=== PATIENT | male | born 1960 | race Caucasian/White ===

== ENCOUNTER 2022-11-02 08:01 | Outpatient (CLI) | payer MEDICAID, SELFPAY ==
--- NOTE | 2022-11-02 08:45 | CT_ITS ---
WS: [id number] LDCT LUNG CANCER SCREENING HISTORY: Lung cancer screening TECHNIQUE: Axial imaging performed from the apices to 1 cm below the costophrenic angles. Coronal and sagittal reformats are submitted with axial MIP series. All CT scans at [facility] use at least one of these dose optimization techniques: automated exposure control; mA and/or kV adjustment per patient size (includes targeted exams where dose is matched to clinical indication); or iterativ e reconstruction. DLP: 52.97 mGy.cm DIvol: Mean CTDIvol: 0.60 (mGy) COMPARISON: None available. Diagnostic quality: Satisfactory Lungs: Marked pulmonary emphysema. Biapical scarring with fibrosis and pleural thickening. Bilateral lower lobe irregular opacifications. Spiculated opacification at the RIGHT lung base measures 2.1 x 2 .0 cm. There is minimal broad-based opacification at the LEFT lung base. Heart: Normal size heart with no pericardial effusion.. Other findings: Mild atherosclerosis aorta. Normal size pulmonary artery. No adenopathy. No adrenal m ass. CT/CT lung screening [id number] IMPRESSION: LUNG-RADS: 4B-Suspicious FOLLOW UP: PET/CT recommended OTHER FINDINGS (S MODIFIER): None. Irregular opacifications at the lung bases may be early neoplastic changes or f ibrosis with scarring. No prior studies for comparison.
== END 2022-11-02 08:02 | disposition home or self-care (01) ==
LOC: RAD 08:04
PROVIDERS: PCP Family Medicine; Visit Provider Family Medicine
DX: Z12.2 Encounter for screening for malignant neoplasm of respiratory organs (principal); F17.219 Nicotine dependence, cigarettes, with unspecified nicotine-induced disorders
CPT/HCPCS: 71271

== ENCOUNTER 2022-11-24 05:56 | Outpatient (CLI) | payer MEDICAID, SELFPAY ==
--- NOTE | 2022-11-24 | PETR_ITS ---
PROCEDURE INFORMATION: Exam: PET/CT Skull Base to Mid-thigh Exam date and time: 11/24/2022 10:19 AM Age: 62 years old Clinical indication: Abnormal CT lung screening 11/02/2022. Bilateral lower lobe spiculated densities. LABS AND CLINICAL REPORTS: Glucose: 104 mg/dl Treatment strategy for malignancy (PET staging): Initial Staging (PI) TECHNIQUE: Imaging protocol: Following at least four-hour fasting and following the injection of radiopharmaceutical, low dose CT images were obtained. Then, PET images were obtained. Attenuation corrected images were constructed using the CT scan. Fused images of PET and CT were reviewed. The standardized uptake values (SUV) reported below are maximum values within a region of interest, expressed in gm/ml. Exam includes orbital meatal line to mid-thigh. Radiopharmaceutical: 16.09 mCi F-18 FDG (Fluorodeoxyglucose), IV. Time of imaging post radiopharmaceutical administration: 54.7 minutes. Injection site: Right antecubital vein. COMPARISON: CT lung screening [id number] 11/02/2022 8:24 AM FINDINGS: Brain: Visualized brain has normal physiologic uptake. Pharynx: No abnormal uptake. Larynx: No abnormal uptake. Lungs, pleura and trachea: Hyperinflation due to severe emphysema. The spiculated opacification at the right lung base , which was seen on the screening chest CT 3 weeks ago, has almost completely resolved. Minimal residual linear densities at its former location are consistent with atelectasis and/or scarring. It must have been infectious/inflammatory disease. SUV max at its former location is only 1.3. The minimal broad-based opacification at the left lung base , which was seen on the prior CT, is unchanged. Its SUV max is only 1.4. It is consistent with scarring. Bilateral apical pleural/parenchymal scarring is not FDG avid. SUV max at the right lung apex is only 1.4 (image 37). SUV max at the left lung apex is only 1.6 (image 36). Heart: Heart size is normal. Mediastinal space: No abnormal uptake. Liver: No abnormal uptake. Gallbladder and bile ducts: No abnormal uptake. Pancreas: No abnormal uptake. Spleen: No abnormal uptake. Adrenal glands: No abnormal uptake. Kidneys and ureters: Normal physiologic uptake. Stomach and bowel: No abnormal uptake. Reproductive: Mild prostate enlargement. Vasculature: No abnormal uptake. Lymph nodes: No abnormal uptake. No lymphadenopathy in the head, neck, chest, abdomen, pelvis or extremities. Bones/joints: No metabolically active areas. Soft tissues: No metabolically active areas. [id number] IMPRESSION: 1. No evidence of FDG avid malignant neoplasm. 2. Hyperinflation due to severe emphysema.
== END 2022-11-24 05:57 | disposition home or self-care (01) ==
LOC: RAD 11-26 05:56
PROVIDERS: PCP Family Medicine; Visit Provider Family Medicine
DX: R91.8 Other nonspecific abnormal finding of lung field (principal)
CPT/HCPCS: 78815; A9552

== ENCOUNTER → 2023-01-14 15:58 | Outpatient (BNVA) | payer MEDICAID, SELFPAY | PROVIDERS: PCP Family Medicine; Visit Provider Internal Medicine Pulmonary Disease | DX: R06.02 Shortness of breath (principal); J44.9 Chronic obstructive pulmonary disease, unspecified; R91.8 Other nonspecific abnormal finding of lung field | CPT/HCPCS: 36415; 80053; 85025 ==

== ENCOUNTER 2023-09-15 23:34 | Emergency (ER) | payer MEDICAID, SELFPAY ==
[2023-09-15 23:41] VITALS: BP 144/102; PULSE 105; RESP 22; TEMP 36.6; O2SAT 93; BMI 17.7
[2023-09-15 23:57] VITALS: BP 157/101; PULSE 101; RESP 22; O2SAT 97
--- NOTE | 2023-09-16 00:01 | ECG_ITS ---
[facility] Test Date: 2023-09-15 Pat Name: Barry Phelan Department: Room: Gender: Male Nutrition Consultant: : 1960 Requested By: Kole Rolon Order Number: [id number] Carlos Alberto MD: Faisal Alfaro M.D. Measurements Intervals [place] Rate: 100 P: 85 WV: 219 QRS: 82 QRSD: 86 T: 72 QT: 316 QTc: 408 Interpretive Statements SINUS TACHYCARDIA WITH FIRST DEGREE AV BLOCK WITH OCCASIONAL VENTRICULAR PREMATURE COMPLEXES RIGHT ATRIAL ENLARGEMENT [0.3mV P-WAVE] POSSIBLE LEFT ATRIAL ENLARGEMENT [-0.1mV P-WAVE IN V1/V2] No previous ECG available for comparison Electronically Signed On 09-17-2023 0:31:57 GOPHERMAN by Faisal Alfaro M.D. [email or web address].[employer]/store/Ov/[id number]
--- NOTE | 2023-09-16 00:02 | XRR_ITS ---
PROCEDURE INFORMATION: Exam: XR Chest Exam date and time: 09/16/2023 12:21 AM Age: 62 years old Clinical indication: Shortness of breath; Patient HX: C/O SOB TECHNIQUE: Imaging protocol: Radiologic exam of the chest. Views: 1 view. COMPARISON: CT lung screening [id number] 11/02/2022 8:24 AM FINDINGS: Lungs: Bilateral hyperinflation with emphysematous disease. No lung consolidation. Biapical pleuroparenchymal scarring is noted. Pleural spaces: Unremarkable. No pleural effusion. No pneumothorax. Heart/Mediastinum: No cardiomegaly. Bones/joints: No acute findings. XR/XR chest 1V portable [id number] IMPRESSION: Bilateral emphysema suggesting COPD. It should be noted that recent CT exam demonstrated somewhat suspicious pulmonary nodule. Further assessment should be based on chest CT recommendation and assessment. No obvious acute consolidation.
[2023-09-16 00:09] VITALS: PULSE 101; RESP 18; O2SAT 98
[2023-09-16] MEDS: ipratropium-albuterol 3 mL Neb INHALATION (00:09)
[2023-09-16 00:20] VITALS: PULSE 105; O2SAT 94
[2023-09-16] MEDS: methylPREDNISolone sod succ 125 mg/2 mL INJ IV (00:31)
[2023-09-16 00:36] VITALS: BP 148/91; PULSE 109; RESP 25; O2SAT 93
[2023-09-16 00:50] LABS: Basophils # 0.1 10^3/uL (0.0-0.1); Basophils % 0.7 %; Eosinophils # 0.1 10^3/uL (0.0-0.8); Hematocrit 44.2 % (37-53); Lymphocytes # 1.6 10^3/uL (0.8-4.8); Lymphocytes % 19.6 %; Mean Corpuscular HGB Conc 32.8 g/dL (30-55); Mean Corpuscular Hemoglobin 28.9 pg (27-33); Mean Corpuscular Volume 88.2 fl (82-101); Mean Platelet Volume 10.3 fL (7.4-10.4); Monocytes # 0.9 10^3/uL (0.2-0.9); Neutrophils # 5.48 10^3/uL (1.8-7.7); Neutrophils % 67.3 %; Nucleated Red Blood Cells % 0 %; Platelet Count 242 10^3/cmm (157-399); Red Blood Count 5.01 10^6/uL (3.85-5.65); Red Cell Distribution Width 13.1 % (12.1-15.1); White Blood Count 8.15 10^3/uL (3.29-11.43)
[2023-09-16 00:51] VITALS: BP 148/91; PULSE 106; RESP 21; O2SAT 94
[2023-09-16 01:08] LABS: Lactic Sepsis W/Reflex 0.9 mmol/L (0.5-2.2)
[2023-09-16 01:19] LABS: Alanine Aminotransferase 10 U/L (0-41); Albumin Level 4.3 g/dL (3.5-5.2); Alkaline Phosphatase 76 U/L (40-130); Anion Gap 14.7 (5-19); Aspartate Amino Transferase 18 U/L (0-40); Blood Urea Nitrogen 22 mg/dL (8-23); Calcium 8.9 mg/dL (8.5-10.5); Carbon Dioxide 27 mmol/L (22-29); Chloride 101 mmol/L (98-107); Creatinine Clr Calc Pharmacy 71.8189; Globulin 2.9 g/dL (1.3-4.6); Glomerular Filtration Rate 75.2 mL/min (90-130); Glucose 113 mg/dL (65-115); NT Pro B Type Natriuretic Pept 61 pg/mL (0-125); Osmolality Calculated 290 mOsm/kg (285-295); Potassium 4.7 mmol/L (3.5-5.1); Sodium 138 mmol/L (136-145); Total Bilirubin 0.3 mg/dL (0.15-1.2); Total Protein 7.2 g/dL (6.6-8.7)
[2023-09-16 01:38] VITALS: BP 135/89; PULSE 106; RESP 25; O2SAT 92
[2023-09-16 01:51] VITALS: BP 135/89; PULSE 106; RESP 25; TEMP 36.6; O2SAT 92
--- NOTE | 2023-09-16 02:04 | W.ED.SOB ---
HPI - SOB/Dyspnea General: Chief Complaint: Shortness of Breath/Dyspnea Stated Complaint: SOB Time Seen by Provider: 09/15/23 23:57 History of Present Illness: HPI Narrative: 62-year-old male patient with a history of COPD. He notes that he has been sick for the last several days. Increasing shortness of breath, cough and congestion. He notes clear sputum. He denies fever. No chest pain. Associated symptoms: Deny abdominal pain, chest pain, dizziness, fever(s), nausea, palpitations or vomiting Review of Systems Const: Denies: fever(s), chills or body aches Eyes: Denies: change in vision Card: Denies: chest pain or palpitations Resp: Reports: dyspnea and productive cough; Denies: non-productive cough or wheezing GI: Denies: abdominal pain, nausea, vomiting, diarrhea or hematochezia Skin/Breast: Denies: rash Neuro: Denies: headache(s), weakness in extremities, dizziness or confusion PFS ED PFSH: Medical History Tobacco use disorder, severe, in sustained remission Alcohol use disorder, severe, dependence Chronic obstructive pulmonary disease History of COVID-19 Family History Other Clotting disorder Lung disease Denies family history of Diabetes CAD (coronary artery disease) Dementia Hyperlipidemia Psychiatric illness Chronic kidney disease (CKD) Anesthesia complication Bleeding disorder Cancer Hypertension Stroke Social History Smoking and tobacco/nicotine status: former use of tobacco/nicotine Quit status (tobacco/nicotine): has quit using Year quit tobacco: 2006 Alcohol intake: former Year of sobriety/quit date alcohol: 2006 Substance/Drug Use: current Substance/Drug use frequency: daily Other substance/drug use details: 1 joint a day Lives independently: Yes Marital status: Number of children: 4 Current occupational status: disabled Special airam needs: No Agree to transfusion: Yes Physical Exam Const: COMMON NORMALS: no acute distress GENERAL APPEARANCE: cooperative; not ill appearing and not frail appearing HENMT: COMMON NORMALS: normocephalic, atraumatic and Normal external nose present HEAD & SCALP: normocephalic and atraumatic FACE & SINUS: normal facial exam and face symmetric NOSE: Normal external nose present Eye: COMMON NORMALS: Equal, round and reactive pupils present and EOMs intact bilaterally PUPIL: Yes Equal, round and reactive pupils present Neck/C-Spine: GENERAL: Yes trachea midline Chest: CHEST: Yes Symmetrical chest wall rise Resp: EFFORT & INSPECTION: Yes tachypneic AUSCULTATION: wheezes (Slight) and diminished lung sounds Cardio: COMMON NORMALS: regular rhythm RATE: tachycardic RHYTHM: regular rhythm GI: COMMON NORMALS: Normal to inspection, nondistended, normoactive bowel sounds present Extremity: COMMON NORMALS: no pedal edema Neuro: IAN COMA SCALE: document GCS findings [place] coma scale eye opening: Spontaneous [place] coma scale verbal response: Orientated Ian coma scale motor response: Obey commands Ian coma scale total score: 15 SENSORY EXAM: Yes extremities (intact) Psych: COMMON NORMALS: speech normal SPEECH: Yes normal speech Skin: COMMON NORMALS: no rashes or lesions noted GENERAL SKIN EXAM: no rashes or lesions noted Course Vital Signs: Vital signs: Vital Signs Temperature 98 F 09/16/23 01:51 Pulse Rate 106 H 09/16/23 01:51 Respiratory Rate 25 H 09/16/23 01:51 Blood Pressure 135/89 09/16/23 01:51 Pulse Oximetry 92 09/16/23 01:51 Oxygen Delivery Me thod Nasal Cannula 09/16/23 01:38 Oxygen Flow Rate 1 09/16/23 00:09 MDM - SOB/Dyspnea Medical Decision Making Patient is improved after breathing treatment and Solu-Medrol here. He feels much better he says. He was initially placed on oxygen, now off oxygen. Chest x-ray is free of infiltrate. Laboratory including BMP is otherwise not remarkable. To be placed on antibiotics and steroids. He does not have any nebulization solution other than ipratropium at home. We will give him DuoNeb treatment as this seemed to help significantly here. He knows to return for any worsening symptoms despite treatment. Lab Data 09/16/23 00:42 09/16/23 00:42 Labs/Radiology: Radiology Impressions Chest X-Ray 09/16/23 00:02 IMPRESSION: Bilateral emphysema suggesting COPD. It should be noted that recent CT exam demonstrated somewhat suspicious pulmonary nodule. Further assessment should be based on chest CT recommendation and assessment. No obvious acute consolidation. Laboratory Results WBC 8.15 10^3/uL (3.29-11.43) 09/16/23 00:42 RBC 5.01 10^6/uL (3.85-5.65) 09/16/23 00:42 Hgb 14.50 g/dL (11.27-16.99) 09/16/23 00:42 Hct 44.2 % (37-53) 09/16/23 00:42 MCV 88.2 fl (82-101) 09/16/23 00:42 MCH 28.9 pg (27-33) 09/16/23 00:42 MCHC 32.8 g/dL (30-55) 09/16/23 00:42 RDW 13.1 % (12.1-15.1) 09/16/23 00:42 Plt Count 242 10^3/cmm (157-399) 09/16/23 00:42 MPV 10.3 fL (7.4-10.4) 09/16/23 00:42 Neut % (Auto) 67.3 % 09/16/23 00:42 Lymph % (Auto) 19.6 % 09/16/23 00:42 Blanco % (Auto) 11.0 % 09/16/23 00:42 Eos % (Auto) 1.0 % 09/16/23 00:42 Baso % (Auto) 0.7 % 09/16/23 00:42 Neut # (Auto) 5.48 10^3/uL (1.8-7.7) 09/16/23 00:42 Lymph # (Auto) 1.6 10^3/uL (0.8-4.8) 09/16/23 00:42 Blanco # (Auto) 0.9 10^3/uL (0.2-0.9) 09/16/23 00:42 Eos # (Auto) 0.1 10^3/uL (0.0-0.8) 09/16/23 00:42 Baso # (Auto) 0.1 10^3/uL (0.0-0.1) 09/16/23 00:42 Nucleated RBC % (auto) 0 % 09/16/23 00:42 Nucleated RBCs # 0.0 /100WBC 09/16/23 00:42 Sodium 138 mmol/L (136-145) 09/16/23 00:42 Potassium 4.7 mmol/L (3.5-5.1) 09/16/23 00:42 Chloride 101 mmol/L (98-107) 09/16/23 00:42 Carbon Dioxide 27 mmol/L (22-29) 09/16/23 00:42 Anion Gap 14.7 (5-19) 09/16/23 00:42 BUN 22 mg/dL (8-23) 09/16/23 00:42 Creatinine 1.0 mg/dL (0.7-1.2) 09/16/23 00:42 GFR Calculation 75.2 mL/min (90-130) L 09/16/23 00:42 Glucose 113 mg/dL (65-115) 09/16/23 00:42 Calculated Osmolality 290 mOsm/kg (285-295) 09/16/23 00:42 Lactic Acid 0.9 mmol/L (0.5-2.2) 09/16/23 00:42 Calcium 8.9 mg/dL (8.5-10.5) 09/16/23 00:42 Total Bilirubin 0.3 mg/dL (0.15-1.2) 09/16/23 00:42 AST 18 U/L (0-40) 09/16/23 00:42 ALT 10 U/L (0-41) 09/16/23 00:42 Alkaline Phosphatase 76 U/L (40-130) 09/16/23 00:42 NT-Pro-B Natriuret Pep 61 pg/mL (0-125) 09/16/23 00:42 Total Protein 7.2 g/dL (6.6-8.7) 09/16/23 00:42 Albumin 4.3 g/dL (3.5-5.2) 09/16/23 00:42 Globulin 2.9 g/dL (1.3-4.6) 09/16/23 00:42 All radiology interpretation(s) finalized by discharge Discharge Plan Discharge Patient Disposition: Home Clinical Impression: Acute exacerbation of chronic obstructive airways disease Condition: Stable Prescriptions: New doxycycline hyclate 100 mg tablet 100 mg PO BID 7 Days Qty: 14 0RF prednisone 20 mg tablet 60 mg PO DAILY Qty: 15 0RF ipratropium-albuterol 0.5 mg-3 mg(2.5 mg base)/3 mL solution for nebulization 3 ml inhalation Q6H PRN (Reason: shortness of breath or wheezing) Qty: 90 0RF No Action levalbuterol HCl 0.63 mg/3 mL solution for nebulization 0.63 mg inhalation TID PRN (Reason: shortness of breath or wheezing) Qty: 90 6RF Breztri Aerosphere 160-9-4.8 mcg/actuation HFA aerosol inhaler 2 inh inhalation BID Qty: 10.7 3RF levalbuterol tartrate [Xopenex HFA] 45 mcg/actuation HFA aerosol inhaler 2 inh inhalation Q6H Qty: 15 6RF ipratropium bromide 0.02 % solution See Rx Instructions .ROUTE .COMPLEX Qty: 150 1RF Dose Instruction: USE 1 VIAL PER NEBULIZER FOUR TIMES DAILY NEEDED FOR SHORTNESS OF BREATH OR WHEEZING Rx Instructions: USE 1 VIAL PER NEBULIZER FOUR TIMES DAILY NEEDED FOR SHORTNESS OF BREATH OR WHEEZING Discharge Orders: Discharge ED (Routine); Ordered 09/16/23 Ordered By: Kole Granados Referrals: Santiago Cochran MD [Primary Care Provider] - 1-3 days Patient Instructions: COPD (Chronic Obstructive Pulmonary Disease) (ED) Activity Restrictions/Additional Instructions: Medications as directed. Use the nebulizer treatment you were prescribed every 4 hours while awake for the next 48 hours, then as needed to follow. Return for worsening shortness of breath despite treatment, fever despite 2-3 doses of antibiotics, significant chest pain, other concerning symptoms. Coding Level of Care Code ED Tube Cleaning Operator for Bhavana Fu
== END 2023-09-16 01:52 | disposition home or self-care (01) ==
PROVIDERS: Emergency Provider Emergency Medicine; PCP Family Medicine
DX: J44.1 Chronic obstructive pulmonary disease with (acute) exacerbation (principal); Z87.891 Personal history of nicotine dependence
CPT/HCPCS: 36415; 71045; 80053; 83605; 83880; 85025; 87040; 87077; 87186; 87205; 93005; 94640; 96374; 99285; J2930

== ENCOUNTER 2023-09-21 23:06 | Inpatient (IN) | payer MEDICAID, SELFPAY ==
[2023-09-21 23:09] VITALS: BP 143/87; PULSE 84; RESP 20; TEMP 36.5; O2SAT 95; BMI 17.7
[2023-09-22] VITALS (18 sets, daily range): BP systolic 115–145; BP diastolic 74–91; PULSE 76–108; RESP 14–21; TEMP 36.4; O2SAT 92–96
--- NOTE | 2023-09-22 00:58 | ECG_ITS ---
[facility] Test Date: 2023-09-22 Pat Name: Barry Phelan Department: Room: Gender: Male Specialty Development Consultant: : 1960 Requested By: Kole Rolon Order Number: [id number] Carlos Alberto MD: Reji Evans M.D. Measurements Intervals [place] Rate: 73 P: 85 SD: 176 QRS: 79 QRSD: 88 T: 72 QT: 376 QTc: 415 Interpretive Statements SINUS RHYTHM Compared to ECG 09/15/2023 23:59:17 Sinus tachycardia no longer present First degree AV block no longer present Atrial abnormality no longer present Electronically Signed On 09-23-2023 9:29:56 SPECIAL TESTER by Reji Evans M.D. [email or web address] [email or web address]/store/[id number]
--- NOTE | 2023-09-22 00:59 | XRR_ITS ---
PROCEDURE INFORMATION: Exam: XR Chest Exam date and time: 09/22/2023 1:18 AM Age: 62 years old Clinical indication: Cough and dyspnea; Additional info: SOB TECHNIQUE: Imaging protocol: Radiologic exam of the chest. Views: 1 view. COMPARISON: 1. CR (CHEST, ) 09/16/2023 12:21 AM 2. PET-CT report 11/24/2022 FINDINGS: Lungs: Stable pulmonary hyperinflation. Focal interstitial opacities in the right upper lung zone are stable to slightly worsened. No elizabeth consolidation is seen. Stable 7 mm nodule in the left mid lung zone. Other scattered smaller nodules are stable. Pleural spaces: Unremarkable. No pleural effusion. No pneumothorax. Heart/Mediastinum: Unremarkable. No cardiomegaly. Bones/joints: Unremarkable. XR/XR chest 1V portable [id number] IMPRESSION: 1. Questionable mild increased interstitial thickening in the right mid upper lung zone worrisome for pneumonia. 2. Other findings grossly stable compared to 09/16/2023.
[2023-09-22] MEDS: methylPREDNISolone sod succ 125 mg/2 mL INJ IV (01:07)
[2023-09-22 01:12] LABS: Basophils % 0.3 %; Eosinophils # 0.1 10^3/uL (0.0-0.8); Eosinophils % 1.3 %; Hematocrit 42.4 % (37-53); Lymphocytes # 2.3 10^3/uL (0.8-4.8); Mean Corpuscular HGB Conc 32.8 g/dL (30-55); Mean Corpuscular Hemoglobin 28.8 pg (27-33); Mean Platelet Volume 9.7 fL (7.4-10.4); Monocytes # 0.8 10^3/uL (0.2-0.9); Monocytes % 8.5 %; Neutrophils # 5.94 10^3/uL (1.8-7.7); Nucleated Red Blood Cells % 0 %; Platelet Count 310 10^3/cmm (157-399); Red Blood Count 4.82 10^6/uL (3.85-5.65); Red Cell Distribution Width 12.8 % (12.1-15.1); White Blood Count 9.28 10^3/uL (3.29-11.43)
[2023-09-22] MEDS: ipratropium-albuterol 3 mL Neb INHALATION ×4 (01:15→20:48)
[2023-09-22 01:43] LABS: Alanine Aminotransferase 19 U/L (0-41); Albumin Level 3.9 g/dL (3.5-5.2); Alkaline Phosphatase 72 U/L (40-130); Anion Gap 13.2 (5-19); Aspartate Amino Transferase 13 U/L (0-40); Blood Urea Nitrogen 20 mg/dL (8-23); Calcium 8.5 mg/dL (8.5-10.5); Carbon Dioxide 29 mmol/L (22-29); Chloride 101 mmol/L (98-107); Creatinine Clr Calc Pharmacy 71.8189; Globulin 2.5 g/dL (1.3-4.6); Glomerular Filtration Rate 75.2 mL/min (90-130); Glucose 97 mg/dL (65-115); NT Pro B Type Natriuretic Pept 57 pg/mL (0-125); Osmolality Calculated 291 mOsm/kg (285-295); Potassium 4.2 mmol/L (3.5-5.1); Sodium 139 mmol/L (136-145); Total Bilirubin 0.2 mg/dL (0.15-1.2); Total Protein 6.4 g/dL (6.6-8.7)
[2023-09-22] MEDS: cefTRIAXone 1,000 MG in sodium chloride 0.9% (plus) 50 ML 100 MG IV (02:00)
[2023-09-22] MEDS: azithromycin 500 MG in sodium chloride 0.9% 250 ML 250 MG IV (02:14)
--- NOTE | 2023-09-22 03:47 | P.HP_ITS ---
Providers/Chief Complaint 2 Primary Care Provider: Santiago Cochran MD Chief Complaint: sob mucus in chest History of Present Illness Pleasant 62-year-old gentleman with COPD, has followed up with Dr. Vitale, uses the Breztri, nebulizer at home, not normally on oxygen, was recently assessed for sleep exacerbation on 09/16, discharged home with a course of doxycycline, prednisone, DuoNebs. Returns to the hospital due to persistent symptoms with dyspnea, cough productive of white sputum, dyspnea with exertion. Received Solu-Medrol, DuoNeb in ER, with possible right upper lobe infiltrate received ceftriaxone, azithromycin for possible superimposed bacterial pneumonia, did not feel better after initial treatment, request was made for additional assessment treatment with hospitalization. Review of Systems 2 Const: Denies: fever(s), chills, body aches or malaise ENMT: Denies: throat pain Card: Denies: chest pain, edema, pre-syncope or dyspnea on exertion Resp: Reports: dyspnea and productive cough; Denies: change in phlegm color or hemoptysis GI: Denies: abdominal pain, nausea, vomiting, diarrhea, constipation, hematochezia or melena : Denies: flank pain, difficulty urinating, urinary frequency or hematuria Musc: Denies: back pain, joint swelling or joint redness Skin/Breast: Denies: rash or new lesions Neuro: Denies: headache(s) or confusion Medications/Allergies Home Medications Medication Instructions Recorded Confirmed Last Taken Type levalbuterol HCl 0.63 mg/3 mL 0.63 mg (3 mL) inhalation TID PRN 04/01/23 04/01/23 Unknown Rx solution for nebulization shortness of breath or wheezing #90 mL budesonide 160 mcg-glycopyr 9 2 inh inhalation BID #10.7 grams 05/30/23 Unknown Rx mcg-formot 4.8 mcg/actuation HFA inhaler (Breztri Aerosphere) Xopenex HFA 45 mcg/actuation 2 inh inhalation Q6H #15 grams 06/18/23 Unknown Rx aerosol inhaler (levalbuterol tartrate) ipratropium bromide 0.02 % See Rx Instructions .Route 06/27/23 Unknown Rx solution for inhalation .COMPLEX #150 mL doxycycline hyclate 100 mg tablet 100 mg PO BID 7 days #14 tabs 09/16/23 Unknown Rx ipratropium 0.5 mg-albuterol 3 mg 3 ml inhalation Q6H PRN shortness 09/16/23 Unknown Rx (2.5 mg base)/3 mL nebulization of breath or wheezing #90 mL soln prednisone 20 mg tablet 60 mg (3 x 20 mg) PO DAILY #15 tabs 09/16/23 Unknown Rx Allergies Allergy/AdvReac Type Severity Reaction Status Date / Time albuterol AdvReac Intermediate ADR/ALGY-Pa Verified 09/21/23 23:13 lpitations PFSH Acute 2 PFSH: Medical History Tobacco use disorder, severe, in sustained remission Alcohol use disorder, severe, dependence Chronic obstructive pulmonary disease History of COVID-19 Family History Other Clotting disorder Lung disease Denies family history of Diabetes CAD (coronary artery disease) Dementia Hyperlipidemia Psychiatric illness Chronic kidney disease (CKD) Anesthesia complication Bleeding disorder Cancer Hypertension Stroke Social History Smoking and tobacco/nicotine status: former use of tobacco/nicotine Quit status (tobacco/nicotine): has quit using Year quit tobacco: 2005 Alcohol intake: former Year of sobriety/quit date alcohol: 2005 Substance/Drug Use: current Substance/Drug use frequency: daily Other substance/drug use details: 1 joint a day Lives independently: Yes Marital status: Number of children: 4 Current occupational status: disabled Special airam needs: No Agree to transfusion: Yes Vitals/I&O/Wt Last Vital Signs Temp 97.7 F 09/21/23 23:09 Pulse 83 09/22/23 03:11 Resp 14 09/22/23 03:11 BP 138/87 09/22/23 03:11 Pulse Ox 95 09/22/23 03:11 O2 Del Method Nasal Cannula 09/22/23 01:15 O2 Flow Rate 2 09/22/23 01:15 09/21/23 09/21/23 09/22/23 14:59 22:59 06:59 Intake Total 50 / 50 Balance 50 / 50 Weight last 48 hrs Weight 68.039 kg Physical Exam 2 Const: COMMON NORMALS: patient oriented x3 and alert GENERAL APPEARANCE: c ooperative ORIENTATION/CONSCIOUSNESS: Yes awake HENMT: COMMON NORMALS: oropharynx normal Neck/C-Spine: COMMON NORMALS: no JVD Resp: AUSCULTATION: rhonchi and wheezes Cardio: COMMON NORMALS: no JVD, regular rhythm, S1 normal heart sound present, S2 normal heart sound present and No murmurs present (Cardio) RHYTHM: regular rhythm HEART SOUNDS: S1 normal heart sound present and S2 normal heart sound present GI: COMMON NORMALS: Normal to inspection, nondistended, normoactive bowel sounds present, Soft to palpation and non-tender PALPATION: Yes Soft to palpation Extremity: COMMON NORMALS: no joint enlargement and no pedal edema Neuro: COMMON NORMALS: patient oriented x3 and moves all extremities S ENSORIUM/ORIENTATION: Yes alert Skin: COMMON NORMALS: no rashes or lesions noted GENERAL SKIN EXAM: no rashes or lesions noted Data 09/22/23 01:05 09/22/23 01:05 Micro: Microbiology 09/22/23 01:58 Blood Culture - Preliminary Blood SPECIMEN COLLECTED 09/22/23 01:53 Blood Culture - Preliminary Blood SPECIMEN COLLECTED A&P Assessment and plan (1) Acute exacerbation of chronic obstructive airways disease: Severe exacerbation of COPD with dyspnea, productive cough of purulent sputum, unimproved after outpatient treatment, newly requiring 2 L of oxygen by nasal cannula, not normally on oxygen. Reviewed vitals, CBC, CMP, EKG, my interpretation was sinus rhythm, chest x-ray, on my interpretation severe Paul, hyperinflation, possible infiltrate right upper lung. Reviewed ER note, discussed with ER provider. Respiratory viral panel now back as well, reviewed, negative. Continue ceftriaxone, azithromycin for possible pneumonia and an COPD exacerbation. IV Solu-Medrol 40 mg every 6 hours. At risk of hyperglycemia with steroids, follow-up glucose, risk of hypotension, to palpation. Breathing treatments. Oxygen support. RT assess and treat. Follow-up with pulmonology. Plan Possible pneumonia: Possible pneumonia right upper lobe, continue ceftriaxone, azithromycin, collect sputum culture. Urine bacterial antigens, urine Legionella antigen, MRSA PCR. Follow-up CBC. Attestations 2 Medical Necessity Statement*: Place in observation for additional assessment management of severe exacerbation of COPD not responsive to outpatient treatment, with possible superimposed pneumonia. Diagnoses Acute exacerbation of chronic obstructive airways disease J44.1
[2023-09-22 04:31] LABS: Adenovirus Not Detected (NOT DETECT); Chlamydia Pneumoniae Not Detected (NOT DETECT); Coronavirus 229E,HKU1,NL63,OC4 Not Detected (NOT DETECT); Human Metapneumovirus Not Detected (NOT DETECT); Human Rhinovirus/Enterovirus Not Detected (NOT DETECT); Influenza A Not Detected (NOT DETECT); Influenza A H1 Not Detected (NOT DETECT); Influenza A H1-2009 Not Detected (NOT DETECT); Influenza A H3 Not Detected (NOT DETECT); Influenza B Not Detected (NOT DETECT); Mycoplasma Pneumoniae Not Detected (NOT DETECT); Parainfluenza Virus Type 1 Not Detected (NOT DETECT); Parainfluenza Virus Type 2 Not Detected (NOT DETECT); Parainfluenza Virus Type 3 Not Detected (NOT DETECT); Parainfluenza Virus Type 4 Not Detected (NOT DETECT); Respiratory Syncytial Virus A Not Detected (NOT DETECT); Respiratory Syncytial Virus B Not Detected (NOT DETECT); SARS-COV-2 Not Detected (NOT DETECT)
[2023-09-22] MEDS: enoxaparin 40 mg/0.4 mL Syringe SUBCUT (04:34)
--- NOTE | 2023-09-22 05:08 | ED_ITS ---
HPI - SOB/Dyspnea 2 General: Chief Complaint: Shortness of Breath/Dyspnea Stated Complaint: sob mucus in chest Time Seen by Provider: 09/22/23 00:35 History of Present Illness: HPI Narrative: 62-year-old male with a history of sever e COPD. He was seen last week for shortness of breath. He was placed on steroids, doxycycline, nebulizer treatments. He began improved to some degree said, but this evening worsened significantly. He cannot walk across the room without being incredibly short of breath. He does not use oxygen at home. He is not complaining of chest pain. Associated symptoms: Deny abdominal pain, chest pain, fever(s) or vomiting Review of Systems 2 Const: Denies: fever(s) ENMT: Denies: throat pain Card: Denies: chest pain Resp: Reports: dyspnea and productive cough GI: Denies: abdominal pain or vomiting Skin/Breast: Denies: rash PFSH ED 2 PFSH: Medical History Tobacco use disorder, severe, in sustained remission Alcohol use disorder, severe, dependence Chronic obstructive pulmonary disease History of COVID-19 Family History Other Clotting disorder Lung disease Denies family history of Diabetes CAD (coronary artery disease) Dementia Hyperlipidemia Psychiatric illness Chronic kidney disease (CKD) Anesthesia complication Bleeding disorder Cancer Hypertension Stroke Social History Smoking and tobacco/nicotine status: former use of tobacco/nicotine Quit status (tobacco/nicotine): has quit using Year quit tobacco: 2005 Alcohol intake: former Year of sobriety/quit date alcohol: 2006 Substance/Drug Use: current Substance/Drug use frequency: daily Other substance/drug use details: 1 joint a day Lives independently: Yes Marital status: Number of children: 4 Current occupational status: disabled Special airam needs: No Agree to transfusion: Yes Physical Exam 2 Const: COMMON NORMALS: no acute distress GENERAL APPEARANCE: cooperative, ill appearing and frail appearing NUTRITIONAL APPEARANCE: thin HENMT: COMMON NORMALS: normocephalic, atraumatic and Normal external nose present HEAD & SCALP: normocephalic and atraumatic FACE & SINUS: normal facial exam and face symmetric NOSE: Normal external nose present Eye: COMMON NORMALS: Equal, round and reactive pupils present and EOMs intact bilaterally PUPIL: Yes Equal, round and reactive pupils present Neck/C-Spine: GENERAL: Yes trachea midline Chest: CHEST: Yes Symmetrical chest wall rise Resp: EFFORT & INSPECTION: Yes symmetric chest movement and Yes labored A USCULTATION: diminished lung sounds Cardio: COMMON NORMALS: regular rate and regular rhythm RATE: regular rate RHYTHM: regular rhythm GI: COMMON NORMALS: Normal to inspection, nondistended, normoactive bowel sounds present Extremity: COMMON NORMALS: no pedal edema Neuro: IAN COMA SCALE: document GCS findings Ian coma scale eye opening: Spontaneous Ian coma scale verbal response: Orientated Ian coma scale motor response: Obey commands Bourg coma scale total score: 15 S ENSORY EXAM: Yes extremities (intact) Psych: COMMON NORMALS: speech normal SPEECH: Yes normal speech Skin: COMMON NORMALS: no rashes or lesions noted GENERAL SKIN EXAM: no rashes or lesions noted Course 2 Vital Signs: Vital signs: Vital Signs Temperature 97.7 F 09/21/23 23:09 Pulse Rate 83 09/22/23 03:11 Respiratory Rate 14 09/22/23 03:11 Blood Pressure 138/87 09/22/23 03:11 Pulse Oximetry 95 09/22/23 03:11 Oxygen Delivery Me thod Nasal Cannula 09/22/23 01:15 Oxygen Flow Rate 2 09/22/23 01:15 MDM - SOB/Dyspnea Medical Decision Making 62-year-old male with severe COPD here with worsening shortness of breath despite having been on steroids, nebulizer treatments, and doxycycline. His right upper lobe is mildly concerning for pneumonia. CBC is normal. BMP is normal. Patient is given antibiotics after blood cultures. He is also given Solu-Medrol and nebulizer treatments. He will be observed. Hospitalist is aware and has seen the patient in the ER. Lab Data 09/22/23 01:05 09/22/23 01:05 Labs/Radiology: Radiology Impressions Chest X-Ray 09/22/23 00:59 IMPRESSION: 1. Questionable mild increased interstitial thickening in the right mid upper lung zone worrisome for pneumonia. 2. Other findings grossly stable compared to 09/16/2023. Laboratory Results WBC 9.28 10^3/uL (3.29-11.43) 09/22/23 01:05 RBC 4.82 10^6/uL (3.85-5.65) 09/22/23 01:05 Hgb 13.90 g/dL (11.27-16.99) 09/22/23 01:05 Hct 42.4 % (37-53) 09/22/23 01:05 MCV 88.0 fl (82-101) 09/22/23 01:05 MCH 28.8 pg (27-33) 09/22/23 01:05 MCHC 32.8 g/dL (30-55) 09/22/23 01:05 RDW 12.8 % (12.1-15.1) 09/22/23 01:05 Plt Count 310 10^3/cmm (157-399) 09/22/23 01:05 MPV 9.7 fL (7.4-10.4) 09/22/23 01:05 Neut % (Auto) 64.0 % 09/22/23 01:05 Lymph % (Auto) 25.0 % 09/22/23 01:05 [place] % (Auto) 8.5 % 09/22/23 01:05 Eos % (Auto) 1.3 % 09/22/23 01:05 Baso % (Auto) 0.3 % 09/22/23 01:05 Neut # (Auto) 5.94 10^3/uL (1.8-7.7) 09/22/23 01:05 Lymph # (Auto) 2.3 10^3/uL (0.8-4.8) 09/22/23 01:05 [place] # (Auto) 0.8 10^3/uL (0.2-0.9) 09/22/23 01:05 Eos # (Auto) 0.1 10^3/uL (0.0-0.8) 09/22/23 01:05 Baso # (Auto) 0.0 10^3/uL (0.0-0.1) 09/22/23 01:05 Nucleated RBC % (auto) 0 % 09/22/23 01:05 Nucleated RBCs # 0.0 /100WBC 09/22/23 01:05 Sodium 139 mmol/L (136-145) 09/22/23 01:05 Potassium 4.2 mmol/L (3.5-5.1) 09/22/23 01:05 Chloride 101 mmol/L (98-107) 09/22/23 01:05 Carbon Dioxide 29 mmol/L (22-29) 09/22/23 01:05 Anion Gap 13.2 (5-19) 09/22/23 01:05 BUN 20 mg/dL (8-23) 09/22/23 01:05 Creatinine 1.0 mg/dL (0.7-1.2) 09/22/23 01:05 GFR Calculation 75.2 mL/min (90-130) L 09/22/23 01:05 Glucose 97 mg/dL (65-115) 09/22/23 01:05 Calculated Osmolality 291 mOsm/kg (285-295) 09/22/23 01:05 Lactic Acid 1.0 mmol/L (0.5-2.2) 09/22/23 01:05 Calcium 8.5 mg/dL (8.5-10.5) 09/22/23 01:05 Total Bilirubin 0.2 mg/dL (0.15-1.2) 09/22/23 01:05 AST 13 U/L (0-40) 09/22/23 01:05 ALT 19 U/L (0-41) 09/22/23 01:05 Alkaline Phosphatase 72 U/L (40-130) 09/22/23 01:05 NT-Pro-B Natriuret Pep 57 pg/mL (0-125) 09/22/23 01:05 Total Protein 6.4 g/dL (6.6-8.7) L 09/22/23 01:05 Albumin 3.9 g/dL (3.5-5.2) 09/22/23 01:05 Globulin 2.5 g/dL (1.3-4.6) 09/22/23 01:05 Adenovirus (PCR) Not detected (NOT DETECT) 09/22/23 02:48 C. pneumoniae DNA (PCR) Not detected (NOT DETECT) 09/22/23 02:48 Coronavirus 229E (PCR) Not detected (NOT DETECT) 09/22/23 02:48 Human Metapneumovir PCR Not detected (NOT DETECT) 09/22/23 02:48 Influenza A (H1) PCR Not detected (NOT DETECT) 09/22/23 02:48 Influ A (H1/09) PCR Not detected (NOT DETECT) 09/22/23 02:48 Influenza A (H3) PCR Not detected (NOT DETECT) 09/22/23 02:48 Influenza Type A (PCR) Not detected (NOT DETECT) 09/22/23 02:48 Influenza Type B (PCR) Not detected (NOT DETECT) 09/22/23 02:48 M. pneumoniae (PCR) Not detected (NOT DETECT) 09/22/23 02:48 Parainfluenza 1 (PCR) Not detected (NOT DETECT) 09/22/23 02:48 Parainfluenza 2 (PCR) Not detected (NOT DETECT) 09/22/23 02:48 Parainfluenza 3 (PCR) Not detected (NOT DETECT) 09/22/23 02:48 Parainfluenza 4 (PCR) Not detected (NOT DETECT) 09/22/23 02:48 RSV Type A (PCR) Not detected (NOT DETECT) 09/22/23 02:48 RSV Type B (PCR) Not detected (NOT DETECT) 09/22/23 02:48 Entero/Rhino (PCR) Not detected (NOT DETECT) 09/22/23 02:48 SARS-CoV-2 (PCR) Not detected (NOT DETECT) 09/22/23 02:48 All radiology interpretation(s) finalized by discharge Discharge Plan Discharge Admit Provider: Mateus Jones Condition: Stable Coding Level of Care Code ED [employer] 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
[2023-09-22] MEDS: methylPREDNISolone sod succ 40 mg/mL INJ IVP ×3 (06:23→18:05)
--- NOTE | 2023-09-22 13:27 | P.PN_ITS ---
Subjective 2 Subjective: Patient was seen this morning, denies any chest pain, abdominal pain, does report shortness of breath, has wheezing on exam is on 2 L, Vitals/I&O/Wt Last Vital Signs Temp 97.7 F 09/21/23 23:09 Pulse 90 09/22/23 12:00 Resp 16 09/22/23 08:47 BP 124/74 09/22/23 12:00 Pulse Ox 95 09/22/23 12:00 O2 Del Method Nasal Cannula 09/22/23 12:00 O2 Flow Rate 1 09/22/23 12:00 09/21/23 09/22/23 09/22/23 22:59 06:59 14:59 Intake Total 300 / 300 Balance 300 / 300 Weight last 48 hrs Weight 68.039 kg Physical Exam 2 Const: COMMON NORMALS: no acute distress and patient oriented x3 Resp: COMMON NORMALS: normal respiratory effort, No retractions and No use of accessory muscles AUSCULTATION: wheezes Cardio: COMMON NORMALS: regular rate, regular rhythm, S1 normal heart sound present and S2 normal heart sound present RATE: regular rate RHYTHM: r egular rhythm HEART SOUNDS: S1 normal heart sound present and S2 normal heart sound present GI: COMMON NORMALS: Normal to inspection, nondistended, normoactive bowel sounds present and non-tender Extremity: COMMON NORMALS: no pedal edema Neuro: COMMON NORMALS: patient oriented x3 Psych: COMMON NORMALS: mental status grossly normal Data 09/22/23 01:05 09/22/23 01:05 Micro: Microbiology 09/22/23 04:35 Gram Stain - Final Sputum - Expectorated Sputum 09/22/23 06:27 Legionella Urinary Antigen - Final Urine,Voided Bacterial Antigens - Final 09/22/23 01:58 Blood Culture - Preliminary Blood SPECIMEN COLLECTED 09/22/23 01:53 Blood Culture - Preliminary Blood SPECIMEN COLLECTED A&P Assessment and plan (1) Acute exacerbation of chronic obstructive airways disease: (2) Pneumonia: (3) Acute hypoxic respiratory failure: (4) Protein calorie malnutrition: (5) Muscle wasting: Plan Acute hypoxic respiratory failure -Secondary to COPD -Secondary pneumonia Plan -Continue Rocephin, azithromycin -Continue Solu-Medrol -Continue DuoNeb -Monitor respiratory status closely -Follow blood cultures, sputum cultures, urine bacterial antigens -Full code -Lovenox for DVT prophylaxis -Protein calorie malnutrition, muscle wasting, likely secondary to severe COPD Attestations 2 Medical Necessity Statement*: Patient requires hospitalization for acute hypoxic respiratory failure secondary COPD, pneumonia Diagnoses Acute exacerbation of chronic obstructive airways disease J44.1 Pneumonia J18.9 Acute hypoxic respiratory failure J96.01 Protein calorie malnutrition E46 Muscle wasting M62.50
--- NOTE | 2023-09-22 14:53 | ECG_ITS ---
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 Measurements Intervals [place] Rate: 105 P: 84 [place]: 174 QRS: 77 QRSD: 85 T: 70 QT: 315 QTc: 416 Interpretive Statements SINUS TACHYCARDIA POSSIBLE RIGHT ATRIAL ENLARGEMENT [0.25mV P-WAVE] POSSIBLE LEFT ATRIAL ENLARGEMENT [-0.1mV P-WAVE IN V1/V2] NONSPECIFIC T-WAVE ABNORMALITY Compared to ECG 09/22/2023 01:30:21 T-wave abnormality now present Sinus rhythm no longer present Electronically Signed On 09-23-2023 8:47:58 MOBILE APPLICATION DEVELOPER by Reji Evans M.D. [id number] f
[2023-09-23] VITALS (11 sets, daily range): BP systolic 118–149; BP diastolic 66–86; PULSE 83–115; RESP 16–20; TEMP 36.5–37; O2SAT 92–97
[2023-09-23] MEDS: methylPREDNISolone sod succ 40 mg/mL INJ IVP ×4 (00:07→17:14)
[2023-09-23] MEDS: cefTRIAXone 1,000 MG in sodium chloride 0.9% (plus) 50 ML 100 MG IV (00:08)
[2023-09-23] MEDS: ipratropium-albuterol 3 mL Neb INHALATION ×2 (02:49→07:56)
[2023-09-23] MEDS: enoxaparin 40 mg/0.4 mL Syringe SUBCUT (05:11)
[2023-09-23 05:45] LABS: Basophils % 0.1 %; Hematocrit 41.9 % (37-53); Lymphocytes # 1.4 10^3/uL (0.8-4.8); Lymphocytes % 7.1 %; Mean Corpuscular HGB Conc 33.2 g/dL (30-55); Mean Corpuscular Volume 87.3 fl (82-101); Mean Platelet Volume 10.2 fL (7.4-10.4); Monocytes # 0.6 10^3/uL (0.2-0.9); Monocytes % 3.1 %; Neutrophils # 16.98 10^3/uL (1.8-7.7); Nucleated Red Blood Cells % 0 %; Platelet Count 365 10^3/cmm (157-399); Red Cell Distribution Width 13.1 % (12.1-15.1); White Blood Count 19.08 10^3/uL (3.29-11.43)
[2023-09-23 06:02] LABS: Anion Gap 14.2 (5-19); Blood Urea Nitrogen 19 mg/dL (8-23); Calcium 9.1 mg/dL (8.5-10.5); Carbon Dioxide 28 mmol/L (22-29); Chloride 98 mmol/L (98-107); Creatinine Clr Calc Pharmacy 84.3877; Glomerular Filtration Rate 97.3 mL/min (90-130); Glucose 127 mg/dL (65-115); Osmolality Calculated 284 mOsm/kg (285-295); Potassium 5.2 mmol/L (3.5-5.1); Sodium 135 mmol/L (136-145)
[2023-09-23 06:07] LABS: Troponin(5th) Baseline < 6 ng/L (0-15)
[2023-09-23 07:19] LABS: Troponin 5 2HR 6.27 ng/L (0-15)
[2023-09-23 08:00] LABS: D Dimer 0.34 ug/mLFEU (0-0.59)
[2023-09-23 08:02] LABS: Troponin 5 2HR Delta 0.27 ABS# (0-10)
[2023-09-23] MEDS: azithromycin 500 MG in sodium chloride 0.9% 250 ML 250 MG IV (08:49)
--- NOTE | 2023-09-23 09:54 | CT_ITS ---
WS: [id number] CTA OF THE CHEST WITH PULMONARY EMBOLISM PROTOCOL TECHNIQUE: High-resolution contrast enhanced CTA of the chest with coronal and sagittal reformatted i ceces with pulmonary embolism protocol. MIP images are also reviewed. CLINICAL INFORMATION: shortness of breath COMPARISON: None. DLP: 215.[address] scans at [facility] use at least one of these dose optimization techniques: automated e xposure control; mA and/or kV adjustment per patient size (includes targeted exams where dose is matc hed to clinical indication); or iterative reconstruction. FINDINGS: Proximal main pulmonary arteries are normal. Normal segmental and subsegmental pulmonary arteries. No evidence of pulmonary embolus. Normal caliber thoracic aorta. Aortic calcification. A few normal size anterior mediastinal and parabronchial lymph nodes. No axillary lymphadenopathy. Ad vanced chronic emphysematous changes. Fibrosis in the lung apices. Mild thoracic curve. Mild thoracic kyphosis. IMPRESSION: 1. No evidence of pulmonary embolus. 2. Advanced chronic emphysematous changes with hyperinflation. 3. No acute pulmonary infiltrates.
--- NOTE | 2023-09-23 11:09 | PC.CHAP ---
Pastoral Care Encounter/Spiritual Assessment Type of Contact [] Declined medical certification specialist visit [] Patient/Family/Request visit [] Outpatient visit [] Follow-up visit [] Physician referral [] Code/Alert [x] Routine visit [] Staff referral [] Actively dying [] Patient sleeping [x] Family support [] [] Out of room [] Palliative care [] [] Receiving care in room [] Pre-surgical visit [] Trauma [] Long length of stay [] ICU visit [] Other: Relational/Emotional Strength [] Patient feels connected with others/family/visitors/staff [] Distress [] Loneliness/isolation [] Abandonment Spirituality of Patient [x] Person of Dolores [] Attends Orthodoxy of their Dolores [x] Believes in Prayer [] Reads Bible or Mormon materials [] There are Spiritual issues to be addressed 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 Automatic Interventions [x] Prayer [x] Active listening [] Non-anxious presence [] Spiritual/emotional support [] Crisis/trauma care [] Spiritual counseling [] Bereavement support [] Provided bereavement packet [] Provided Bible/devotional materials [] Provided toy/stuffed animal, coloring book to patient or family member [] Provided Communion [] Anointing/[place] [] Salvation [x] Completed spiritual assessment [] Other: Impact on Illness or Injury [] Angry [] Fearful [] Anxious [] Often cries [] Exhaustion [] Unable to work [] Unable to attend episcopal [] Unable to walk/stand [] Unable to read [] Unable to drive [] Unable to eat/drink [] Unable to sleep [] Unable to be with family [] Patient intubated [] Other: Summary 10 min Time spent with patient
--- NOTE | 2023-09-23 11:22 | P.PN_ITS ---
Subjective 2 Subjective: Patient was seen this morning continues to complain of shortness of breath, productive cough, no fevers, no chills, no chest pain Vitals/I&O/Wt Last Vital Signs Temp 97.7 F 09/23/23 08:00 Pulse 98 09/23/23 08:05 Resp 17 09/23/23 08:05 BP 136/81 09/23/23 08:00 Pulse Ox 93 09/23/23 08:05 O2 Del Method Room Air 09/23/23 08:05 O2 Flow Rate 1 09/23/23 07:56 09/22/23 09/23/23 09/23/23 22:59 06:59 14:59 Intake Total 360 / 360 50 / 410 730 / 730 Output Total 0 / 0 450 / 450 Balance 360 / 360 -400 / -40 730 / 730 Weight last 48 hrs Weight 63.957 kg Weight 68.039 kg Weight 68.039 kg Physical Exam 2 Const: COMMON NORMALS: no acute distress and patient oriented x3 Resp: COMMON NORMALS: normal respiratory effort, No retractions and No use of accessory muscles AUSCULTATION: wheezes Cardio: COMMON NORMALS: regular rate, regular rhythm, S1 normal heart sound present and S2 normal heart sound present RATE: regular rate RHYTHM: r egular rhythm HEART SOUNDS: S1 normal heart sound present and S2 normal heart sound present GI: COMMON NORMALS: Normal to inspection, nondistended, normoactive bowel sounds present and non-tender Extremity: COMMON NORMALS: no pedal edema Neuro: COMMON NORMALS: patient oriented x3 Psych: COMMON NORMALS: mental status grossly normal Data 09/23/23 05:03 09/23/23 05:03 Micro: Microbiology 09/22/23 01:58 Blood Culture - Preliminary Blood NEGATIVE TO DATE 09/22/23 01:53 Blood Culture - Preliminary Blood NEGATIVE TO DATE 09/22/23 04:35 Gram Stain - Final Sputum - Expectorated Sputum 09/22/23 06:27 Legionella Urinary Antigen - Final Urine,Voided Bacterial Antigens - Final A&P Assessment and plan (1) Acute exacerbation of chronic obstructive airways disease: (2) Pneumonia: (3) Acute hypoxic respiratory failure: (4) Protein calorie malnutrition: (5) Muscle wasting: (6) Low BMI: Plan Acute hypoxic respiratory failure -Secondary to COPD -Secondary pneumonia Plan -Continue Rocephin, azithromycin -Continue Solu-Medrol -Continue DuoNeb -Monitor respiratory status closely -Follow blood cultures, sputum cultures, urine bacterial antigens -Full code -Lovenox for DVT prophylaxis -Protein calorie malnutrition, muscle wasting, BMI 16.7, consult dietary, start Ensure, likely secondary to severe COPD Plan for today continue antibiotics continue steroids, plan on CT of the chest due to persistent shortness of breath, wheezing in all lung [place], history of pulmonary nodules Attestations 2 Medical Necessity Statement*: Patient requires hospitalization for acute hypoxic respiratory failure, secondary to pneumonia Diagnoses Acute exacerbation of chronic obstructive airways disease J44.1 Pneumonia J18.9 Acute hypoxic respiratory failure J96.01 Protein calorie malnutrition E46 Muscle wasting M62.50 Low BMI
[2023-09-23 11:27] LABS: Troponin 5 6HR 6.33 ng/L (0-15)
[2023-09-23 11:48] LABS: Troponin 5 6HR Delta 0.33 ng/L (0-12)
[2023-09-23] MEDS: iohexol 350 mg/mL 500 mL Btl (per mL) IV (12:52)
[2023-09-23] MEDS: levalbuterol 1.25 mg/3 mL Neb INHALATION ×2 (14:08→21:01)
[2023-09-23] MEDS: ALPRAZolam 0.5 mg Tablet PO (21:25)
[2023-09-24] VITALS (12 sets, daily range): BP systolic 112–160; BP diastolic 66–96; PULSE 62–98; RESP 16–20; TEMP 36.3–37; O2SAT 92–95
[2023-09-24] MEDS: methylPREDNISolone sod succ 40 mg/mL INJ IVP ×5 (00:24→23:43)
[2023-09-24] MEDS: cefTRIAXone 1,000 MG in sodium chloride 0.9% (plus) 50 ML 100 MG IV (00:25)
[2023-09-24] MEDS: levalbuterol 1.25 mg/3 mL Neb INHALATION ×4 (02:26→20:50)
[2023-09-24] MEDS: enoxaparin 40 mg/0.4 mL Syringe SUBCUT (05:01)
[2023-09-24 05:22] LABS: Basophils % 0.2 %; Hematocrit 46.1 % (37-53); Lymphocytes % 4.6 %; Mean Corpuscular HGB Conc 32.8 g/dL (30-55); Mean Corpuscular Hemoglobin 28.8 pg (27-33); Mean Corpuscular Volume 87.8 fl (82-101); Monocytes # 0.6 10^3/uL (0.2-0.9); Monocytes % 2.6 %; Neutrophils # 20.24 10^3/uL (1.8-7.7); Neutrophils % 91.7 %; Nucleated Red Blood Cells % 0 %; Platelet Count 377 10^3/cmm (157-399); Red Blood Count 5.25 10^6/uL (3.85-5.65); Red Cell Distribution Width 13.3 % (12.1-15.1); White Blood Count 22.06 10^3/uL (3.29-11.43)
[2023-09-24 06:04] LABS: Anion Gap 15.1 (5-19); Blood Urea Nitrogen 22 mg/dL (8-23); Calcium 9.2 mg/dL (8.5-10.5); Carbon Dioxide 30 mmol/L (22-29); Chloride 99 mmol/L (98-107); Creatinine Clr Calc Pharmacy 75.0113; Glucose 121 mg/dL (65-115); Osmolality Calculated 293 mOsm/kg (285-295); Potassium 5.1 mmol/L (3.5-5.1); Sodium 139 mmol/L (136-145)
[2023-09-24] MEDS: azithromycin 500 MG in sodium chloride 0.9% 250 ML 250 MG IV (07:29)
--- NOTE | 2023-09-24 09:48 | PC.CHAP ---
Pastoral Care Encounter/Spiritual Assessment Type of Contact [] Declined history teacher visit [] Patient/Family/Request visit [] Outpatient visit [] Follow-up visit [] Physician referral [] Code/Alert [x] Routine visit [] Staff referral [] Actively dying [] Patient sleeping [] Family support [] [] Out of room [] Palliative care [] [] Receiving care in room [] Pre-surgical visit [] Trauma [] Long length of stay [] ICU visit [] Other: Relational/Emotional Strength [x] Patient feels connected with others/family/visitors/staff [] Distress [] Loneliness/isolation [] Abandonment Spirituality of Patient [x] Person of Dolores [] Attends Sabianism of their Dolores [x] Believes in Prayer [] Reads Bible or Church materials [] There are Spiritual issues to be addressed Relaster Interventions [x] Prayer [x] Active listening [] Non-anxious presence [x] Spiritual/emotional support [] Crisis/trauma care [] Spiritual counseling [] Bereavement support [] Provided bereavement packet [] Provided Bible/devotional materials [] Provided toy/stuffed animal, coloring book to patient or family member [] Provided Communion [] Anointing/[place] [] Salvation [x] Completed spiritual assessment [] Other: Impact on Illness or Injury [] Angry [] Fearful [] Anxious [] Often cries [] Exhaustion [] Unable to work [] Unable to attend jain [] Unable to walk/stand [] Unable to read [] Unable to drive [] Unable to eat/drink [] Unable to sleep [] Unable to be with family [] Patient intubated [] Other: Summary Time spent with patient 5 min
[2023-09-24] MEDS: ALPRAZolam 0.5 mg Tablet PO ×2 (15:19→23:36)
--- NOTE | 2023-09-24 16:15 | P.PN_ITS ---
Subjective 2 Subjective: Patient was seen this morning he continues to have episodes of shortness of breath and wheezing, requiring about a liter of oxygen, he does report significant anxiety with hyper respiration, the Xanax significantly helps with hyper respiration Vitals/I&O/Wt Last Vital Signs Temp 97.4 F L 09/24/23 11:43 Pulse 93 09/24/23 13:25 Resp 18 09/24/23 13:15 BP 150/80 09/24/23 11:43 Pulse Ox 93 09/24/23 13:15 O2 Del Method Room Air 09/24/23 13:15 O2 Flow Rate 1 09/23/23 07:56 09/24/23 09/24/23 09/24/23 06:59 14:59 22:59 Intake Total 530 / 2700 730 / 730 Output Total 1000 / 2000 Balance -470 / 700 730 / 730 Weight last 48 hrs Weight 63.957 kg Weight 63.957 kg Physical Exam 2 Const: COMMON NORMALS: no acute distress and patient oriented x3 Resp: COMMON NORMALS: normal respiratory effort, No retractions and No use of accessory muscles AUSCULTATION: wheezes Cardio: COMMON NORMALS: regular rate, regular rhythm, S1 normal heart sound present and S2 normal heart sound present RATE: regular rate RHYTHM: r egular rhythm HEART SOUNDS: S1 normal heart sound present and S2 normal heart sound present GI: COMMON NORMALS: Normal to inspection, nondistended, normoactive bowel sounds present and non-tender Extremity: COMMON NORMALS: no clubbing, cyanosis or edema, no calf tenderness and no pedal edema Neuro: COMMON NORMALS: patient oriented x3 Psych: COMMON NORMALS: mental status grossly normal Data 09/24/23 04:58 09/24/23 04:58 Micro: Microbiology 09/22/23 04:35 Gram Stain - Final Sputum - Expectorated Sputum Sputum Culture - Preliminary Gram Negative Rods A&P Assessment and plan (1) Acute exacerbation of chronic obstructive airways disease: (2) Pneumonia: (3) Acute hypoxic respiratory failure: (4) Protein calorie malnutrition: (5) Muscle wasting: (6) Low BMI: Plan Acute hypoxic respiratory failure -Secondary to COPD -Secondary pneumonia -cta chest IMPRESSION: 1. No evidence of pulmonary embolus. 2. Advanced chronic emphysematous changes with hyperinflation. 3. No acute pulmonary infiltrates. Plan -Continue Rocephin, azithromycin -Continue Solu-Medrol -Continue DuoNeb -Monitor respiratory status closely -Follow blood cultures, sputum cultures, urine bacterial antigens -Full code -Lovenox for DVT prophylaxis -Protein calorie malnutrition, muscle wasting, BMI 16.7, consult dietary, start Ensure, likely secondary to severe COPD Plan for today continue antibiotics ,continue steroids,add xanax for anxiety Attestations 2 Medical Necessity Statement*: nPatient requires hospitalization for acute hypoxic respiratory failure secondary COPD, pneumonia, Diagnoses Acute exacerbation of chronic obstructive airways disease J44.1 Pneumonia J18.9 Acute hypoxic respiratory failure J96.01 Protein calorie malnutrition E46 Muscle wasting M62.50 Low BMI
[2023-09-25] VITALS (10 sets, daily range): BP systolic 136–162; BP diastolic 70–94; PULSE 72–92; RESP 16–20; TEMP 36.4; O2SAT 92–98
[2023-09-25] MEDS: cefTRIAXone 1,000 MG in sodium chloride 0.9% (plus) 50 ML 100 MG IV (00:29)
[2023-09-25] MEDS: levalbuterol 1.25 mg/3 mL Neb INHALATION ×4 (02:46→20:51)
[2023-09-25] MEDS: enoxaparin 40 mg/0.4 mL Syringe SUBCUT (04:51)
[2023-09-25 05:16] LABS: Basophils % 0.1 %; Hematocrit 43.8 % (37-53); Lymphocytes # 0.9 10^3/uL (0.8-4.8); Mean Corpuscular HGB Conc 32.2 g/dL (30-55); Mean Corpuscular Hemoglobin 28.7 pg (27-33); Mean Corpuscular Volume 89.2 fl (82-101); Mean Platelet Volume 10.2 fL (7.4-10.4); Monocytes # 0.5 10^3/uL (0.2-0.9); Monocytes % 2.6 %; Neutrophils # 15.92 10^3/uL (1.8-7.7); Neutrophils % 91.3 %; Nucleated Red Blood Cells % 0 %; Platelet Count 344 10^3/cmm (157-399); Red Blood Count 4.91 10^6/uL (3.85-5.65); Red Cell Distribution Width 13.4 % (12.1-15.1); White Blood Count 17.43 10^3/uL (3.29-11.43)
[2023-09-25 05:42] LABS: Blood Urea Nitrogen 28 mg/dL (8-23); Calcium 8.6 mg/dL (8.5-10.5); Carbon Dioxide 31 mmol/L (22-29); Chloride 101 mmol/L (98-107); Creatinine Clr Calc Pharmacy 95.7585; Glomerular Filtration Rate 113.5 mL/min (90-130); Glucose 123 mg/dL (65-115); Osmolality Calculated 295 mOsm/kg (285-295); Sodium 139 mmol/L (136-145)
[2023-09-25] MEDS: methylPREDNISolone sod succ 40 mg/mL INJ IVP ×4 (05:49→23:21)
[2023-09-25] MEDS: azithromycin 500 MG in sodium chloride 0.9% 250 ML 250 MG IV (08:06)
[2023-09-25] MEDS: ALPRAZolam 0.5 mg Tablet PO ×2 (08:10→17:49)
--- NOTE | 2023-09-25 10:55 | P.DS_ITS ---
Discharge Providers Date of Admission: 09/23/23 12:51 Date of Discharge: September 25, 2023 Attending Provider at Admission: Mateus Jones Attending Provider at Discharge: Audie Luke MD Primary Care Provider: Santiago Cochran MD Diagnoses at Discharge Discharge Diagnosis (1) Acute exacerbation of chronic obstructive airways disease: Status: Inactive (2) Pneumonia: Status: Acute (3) Acute hypoxic respiratory failure: Status: Acute (4) Protein calorie malnutrition: Status: Acute (5) Muscle wasting: Status: Acute (6) Low BMI: Status: Acute Reason for Visit Reason for Visit: sob mucus in chest Hospital Course Hospital Course Pleasant 62-year-old gentleman with COPD, has followed up with Dr. Vitale, uses the Breztri, nebulizer at home, not normally on oxygen, was recently assessed for sleep exacerbation on 09/16, discharged home with a course of doxycycline, prednisone, DuoNebs. Returns to the hospital due to persistent symptoms with dyspnea, cough productive of white sputum, dyspnea with exertion. Received So bonnie-Medrol, DuoNeb in ER, with possible right upper lobe infiltrate received ceftriaxone, azithromycin for possible superimposed bacterial pneumonia, did not feel better after initial treatment, request was made for additional assessment treatment with hospitalization. Patient was admitted to [facility] for acute hypoxic respiratory failure secondary to COPD, pneumonia, received steroid therapy, antibiotic therapy, overall clinically improved remained afebrile, he is sputum cultures are showing gram-negative rods, cultures are pending for now. Will discharge him on a prednisone burst, Levaquin for antibiotic coverage, follow-up with primary care provider in 1 week, follow-up with pulmonary in 1 week. Due to patient's severe COPD, anxiety, episodes of tachypnea, episodes of stacking breaths, he was managed with anxiety medication such as alprazolam 0.5 mg twice daily as inpatient, this significantly helped with his anxiety, significantly helped with preventing him from hyper respirating and stacking his breaths, will discharge him on a short supply of alprazolam 0.5 mg twice daily as needed for anxiety. Patient was advised to not operate heavy machinery or drink or drive while taking medication., He voiced understanding, all questions answered, agreed to proceed Physical Exam Const: COMMON NORMALS: no acute distress and patient oriented x3 Resp: COMMON NORMALS: normal respiratory effort, No retractions, No use of accessory muscles and clear to auscultation bilaterally AUSCULTATION: clear to auscultation bilaterally Cardio: COMMON NORMALS: regular rate, regular rhythm, S1 normal heart sound present and S2 normal heart sound present RATE: regular rate RHYTHM: regu lar rhythm HEART SOUNDS: S1 normal heart sound present and S2 normal heart sound present GI: COMMON NORMALS: Normal to inspection, nondistended, normoactive bowel sounds present and non-tender Extremity: COMMON NORMALS: no pedal edema Neuro: COMMON NORMALS: patient oriented x3 Psych: COMMON NORMALS: mental status grossly normal Discharge Data Studies Completed and Pending Completed Studies During Hospitalization Category Date Time Status CT angio chest PE protcl [id number] Routine Cat Scan 09/23/23 09:54 Completed XR chest 1V portable [id number] Stat Exams 09/22/23 00:59 Completed Pending at discharge Category Date Time Status Blood Culture Stat Lab 09/22/23 01:58 Results MRSA [Methicillin Resistant S.aureu] Routine Lab 09/22/23 04:07 Received Sputum Culture and Gram Stain Routine Lab 09/22/23 04:35 Results Radiology Impressions Chest X-Ray 09/22/23 00:59 IMPRESSION: 1. Questionable mild increased interstitial thickening in the right mid upper lung zone worrisome for pneumonia. 2. Other findings grossly stable compared to 09/16/2023. Laboratory Results WBC 17.43 10^3/uL (3.29-11.43) H 09/25/23 04:22 RBC 4.91 10^6/uL (3.85-5.65) 09/25/23 04:22 Hgb 14.10 g/dL (11.27-16.99) 09/25/23 04:22 Hct 43.8 % (37-53) 09/25/23 04:22 MCV 89.2 fl (82-101) 09/25/23 04:22 MCH 28.7 pg (27-33) 09/25/23 04:22 MCHC 32.2 g/dL (30-55) 09/25/23 04:22 RDW 13.4 % (12.1-15.1) 09/25/23 04:22 Plt Count 344 10^3/cmm (157-399) 09/25/23 04:22 MPV 10.2 fL (7.4-10.4) 09/25/23 04:22 Neut % (Auto) 91.3 % 09/25/23 04:22 Lymph % (Auto) 5.0 % 09/25/23 04:22 [place] % (Auto) 2.6 % 09/25/23 04:22 Eos % (Auto) 0.0 % 09/25/23 04:22 Baso % (Auto) 0.1 % 09/25/23 04:22 Neut # (Auto) 15.92 10^3/uL (1.8-7.7) H 09/25/23 04:22 Lymph # (Auto) 0.9 10^3/uL (0.8-4.8) 09/25/23 04:22 [place] # (Auto) 0.5 10^3/uL (0.2-0.9) 09/25/23 04:22 Eos # (Auto) 0.0 10^3/uL (0.0-0.8) 09/25/23 04:22 Baso # (Auto) 0.0 10^3/uL (0.0-0.1) 09/25/23 04:22 Nucleated RBC % (auto) 0 % 09/25/23 04:22 Nucleated RBCs # 0.0 /100WBC 09/25/23 04:22 D-Dimer 0.34 ug/mLFEU (0-0.59) 09/23/23 05:03 Sodium 139 mmol/L (136-145) 09/25/23 04:22 Potassium 5.0 mmol/L (3.5-5.1) 09/25/23 04:22 Chloride 101 mmol/L (98-107) 09/25/23 04:22 Carbon Dioxide 31 mmol/L (22-29) H 09/25/23 04:22 Anion Gap 12.0 (5-19) 09/25/23 04:22 BUN 28 mg/dL (8-23) H 09/25/23 04:22 Creatinine 0.7 mg/dL (0.7-1.2) 09/25/23 04:22 GFR Calculation 113.5 mL/min (90-130) 09/25/23 04:22 Glucose 123 mg/dL (65-115) H 09/25/23 04:22 Calculated Osmolality 295 mOsm/kg (285-295) 09/25/23 04:22 Lactic Acid 1.0 mmol/L (0.5-2.2) 09/22/23 01:05 Calcium 8.6 mg/dL (8.5-10.5) 09/25/23 04:22 Total Bilirubin 0.2 mg/dL (0.15-1.2) 09/22/23 01:05 AST 13 U/L (0-40) 09/22/23 01:05 ALT 19 U/L (0-41) 09/22/23 01:05 Alkaline Phosphatase 72 U/L (40-130) 09/22/23 01:05 Troponin T Baseline < 6 ng/L (0-15) 09/22/23 05:03 Troponin T 120 Minute 6.27 ng/L (0-15) 09/23/23 06:50 Delta Troponin T 0.27 ABS# (0-10) 09/23/23 06:50 Troponin T Hi Sens 6Hr 6.33 ng/L (0-15) 09/23/23 10:50 Troponin T Hi Sens 6Hr Delta 0.33 ng/L (0-12) 09/23/23 10:50 NT-Pro-B Natriuret Pep 57 pg/mL (0-125) 09/22/23 01:05 Total Protein 6.4 g/dL (6.6-8.7) L 09/22/23 01:05 Albumin 3.9 g/dL (3.5-5.2) 09/22/23 01:05 Globulin 2.5 g/dL (1.3-4.6) 09/22/23 01:05 Adenovirus (PCR) Not detected (NOT DETECT) 09/22/23 02:48 C. pneumoniae DNA (PCR) Not detected (NOT DETECT) 09/22/23 02:48 Coronavirus 229E (PCR) Not detected (NOT DETECT) 09/22/23 02:48 Human Metapneumovir PCR Not detected (NOT DETECT) 09/22/23 02:48 Influenza A (H1) PCR Not detected (NOT DETECT) 09/22/23 02:48 Influ A (H1/09) PCR Not detected (NOT DETECT) 09/22/23 02:48 Influenza A (H3) PCR Not detected (NOT DETECT) 09/22/23 02:48 Influenza Type A (PCR) Not detected (NOT DETECT) 09/22/23 02:48 Influenza Type B (PCR) Not detected (NOT DETECT) 09/22/23 02:48 M. pneumoniae (PCR) Not detected (NOT DETECT) 09/22/23 02:48 Parainfluenza 1 (PCR) Not detected (NOT DETECT) 09/22/23 02:48 Parainfluenza 2 (PCR) Not detected (NOT DETECT) 09/22/23 02:48 Parainfluenza 3 (PCR) Not detected (NOT DETECT) 09/22/23 02:48 Parainfluenza 4 (PCR) Not detected (NOT DETECT) 09/22/23 02:48 RSV Type A (PCR) Not detected (NOT DETECT) 09/22/23 02:48 RSV Type B (PCR) Not detected (NOT DETECT) 09/22/23 02:48 Entero/Rhino (PCR) Not detected (NOT DETECT) 09/22/23 02:48 SARS-CoV-2 (PCR) Not detected (NOT DETECT) 09/22/23 02:48 Vitals Last Vital Signs Temp 97.6 F 09/25/23 08:00 Pulse 92 09/25/23 08:00 Resp 18 09/25/23 08:00 BP 155/94 09/25/23 08:00 Pulse Ox 94 09/25/23 08:00 O2 Del Method Room Air 09/25/23 08:00 O2 Flow Rate 1 09/23/23 07:56 Discharge Plan Discharge Patient Disposition: Home Condition: Stable Prescriptions: New alprazolam 0.5 mg Tablet 0.5 mg PO BID PRN (Reason: Anxiety) 7 Days Qty: 14 0RF albuterol sulfate 90 mcg/actuation HFA aerosol inhaler 1 inh inhalation Q6H PRN (Reason: shortness of breath or wheezing) Qty: 8.5 0RF levofloxacin 750 mg tablet 750 mg PO DAILY 3 Days Qty: 3 0RF prednisone 20 mg tablet 20 mg PO BID 5 Days Qty: 10 0RF Continued Breztri Aerosphere 160-9-4.8 mcg/actuation HFA aerosol inhaler 2 inh inhalation BID Qty: 10.7 3RF ipratropium bromide 0.02 % solution See Rx Instructions .ROUTE .COMPLEX Qty: 150 1RF Dose Instruction: USE 1 VIAL PER NEBULIZER FOUR TIMES DAILY NEEDED FOR SHORTNESS OF BREATH OR WHEEZING Rx Instructions: USE 1 VIAL PER NEBULIZER FOUR TIMES DAILY NEEDED FOR SHORTNESS OF BREATH OR WHEEZING ipratropium-albuterol 0.5 mg-3 mg(2.5 mg base)/3 mL solution for nebulization 3 ml inhalation Q6H PRN (Reason: shortness of breath or wheezing) Qty: 90 0RF multivitamin Tablet 1 tab PO DAILY Discontinued doxycycline hyclate 100 mg tablet 100 mg PO BID 7 Days Qty: 14 0RF Rx Instructions: for 7 days (rx filled 09/16/23) prednisone 20 mg tablet 60 mg PO DAILY Qty: 15 0RF Rx Instructions: for 5 days (rx filled 09/16/23) Discharge Orders: Discharge Order (Routine); Ordered 09/25/23 Ordered By: Audie Luke Referrals: Santiago Cochran MD [Primary Care Provider] - 4-7 days Discharge Diet: Cardiac Discharge Activity: Resume usual activity Patient Instructions: Opioid Safety Discharge Attestations Time Spent in Discharge Care*: greater than 30 min Quality Metrics Clinical Quality Measures [ No reported AMI, CVA or VTE this stay] Coding Level of Care Code 07706 Total time (in minutes) for Discharge: 45 Diagnoses Acute exacerbation of chronic obstructive airways disease J44.1 Pneumonia J18.9 Acute hypoxic respiratory failure J96.01 Protein calorie malnutrition E46 Muscle wasting M62.50 Low BMI
--- NOTE | 2023-09-25 12:13 | P.PN_ITS ---
Subjective 2 Subjective: Patient was seen this morning, no fevers, chills, does have a nonproductive cough, sputum culture showing gram-negative rods Vitals/I&O/Wt Last Vital Signs Temp 97.6 F 09/25/23 08:00 Pulse 92 09/25/23 08:00 Resp 18 09/25/23 08:00 BP 155/94 09/25/23 08:00 Pulse Ox 94 09/25/23 08:00 O2 Del Method Room Air 09/25/23 08:00 O2 Flow Rate 1 09/23/23 07:56 09/24/23 09/25/23 09/25/23 22:59 06:59 14:59 Intake Total 960 / 1690 530 / 2220 730 / 730 Output Total 1400 / 1400 800 / 2200 300 / 300 Balance -440 / 290 -270 / 20 430 / 430 Weight last 48 hrs Weight 63.503 kg Weight 63.957 kg Physical Exam 2 Const: COMMON NORMALS: no acute distress and patient oriented x3 Neck/C-Spine: COMMON NORMALS: no JVD Resp: COMMON NORMALS: normal respiratory effort, No retractions, No use of accessory muscles and clear to auscultation bilaterally AUSCULTATION: clear to auscultation bilaterally Cardio: COMMON NORMALS: no JVD, regular rate, regular rhythm, S1 normal heart sound present and S2 normal heart sound present RATE: regular rate RHYTHM: regular rhythm HEART SOUNDS: S1 normal heart sound present and S2 normal heart sound present GI: COMMON NORMALS: Normal to inspection, nondistended, normoactive bowel sounds present and non-tender Extremity: COMMON NORMALS: no pedal edema Neuro: COMMON NORMALS: patient oriented x3 Psych: COMMON NORMALS: mental status grossly normal Data 09/25/23 04:22 09/25/23 04:22 Micro: Microbiology 09/22/23 04:35 Gram Stain - Final Sputum - Expectorated Sputum Sputum Culture - Preliminary Gram Negative Rods A&P Assessment and plan (1) Acute exacerbation of chronic obstructive airways disease: (2) Pneumonia: (3) Acute hypoxic respiratory failure: (4) Protein calorie malnutrition: (5) Muscle wasting: (6) Low BMI: Plan Acute hypoxic respiratory failure -Secondary to COPD -Secondary pneumonia -cta chest IMPRESSION: 1. No evidence of pulmonary embolus. 2. Advanced chronic emphysematous changes with hyperinflation. 3. No acute pulmonary infiltrates. Plan -Continue Rocephin, azithromycin -Continue Solu-Medrol -Continue DuoNeb -Monitor respiratory status closely -Follow blood cultures, sputum cultures, urine bacterial antigens -Full code -Lovenox for DVT prophylaxis -Protein calorie malnutrition, muscle wasting, BMI 16.7, consult dietary, start Ensure, likely secondary to severe COPD Plan for today continue antibiotics ,continue steroids,add xanax for anxiety Attestations 2 Medical Necessity Statement*: Patient requires hospitalization for acute hypoxic respiratory failure secondary COPD pneumonia Diagnoses Acute exacerbation of chronic obstructive airways disease J44.1 Pneumonia J18.9 Acute hypoxic respiratory failure J96.01 Protein calorie malnutrition E46 Muscle wasting M62.50 Low BMI
[2023-09-25 14:58] LABS: Methicillin-Resist S.aureu PCR NOT DETECTED (NOT DETECTED)
[2023-09-26] VITALS (7 sets, daily range): BP systolic 137–161; BP diastolic 75–89; PULSE 73–95; RESP 16–18; TEMP 36.3–36.6; O2SAT 91–100; BMI 16.5
[2023-09-26] MEDS: cefTRIAXone 1,000 MG in sodium chloride 0.9% (plus) 50 ML 100 MG IV (01:19)
[2023-09-26] MEDS: levalbuterol 1.25 mg/3 mL Neb INHALATION ×3 (01:43→14:43)
[2023-09-26] MEDS: methylPREDNISolone sod succ 40 mg/mL INJ IVP (05:05)
[2023-09-26] MEDS: enoxaparin 40 mg/0.4 mL Syringe SUBCUT (05:05)
[2023-09-26] MEDS: ALPRAZolam 0.5 mg Tablet PO ×2 (05:05→14:11)
[2023-09-26 05:35] LABS: Basophils % 0.1 %; Lymphocytes # 0.7 10^3/uL (0.8-4.8); Lymphocytes % 4.1 %; Mean Corpuscular Hemoglobin 29.3 pg (27-33); Mean Corpuscular Volume 88.7 fl (82-101); Mean Platelet Volume 10.2 fL (7.4-10.4); Monocytes # 0.4 10^3/uL (0.2-0.9); Monocytes % 2.6 %; Neutrophils % 92.1 %; Nucleated Red Blood Cells % 0 %; Platelet Count 340 10^3/cmm (157-399); Red Blood Count 4.85 10^6/uL (3.85-5.65); Red Cell Distribution Width 13.3 % (12.1-15.1); White Blood Count 15.95 10^3/uL (3.29-11.43)
[2023-09-26 06:23] LABS: Alanine Aminotransferase 20 U/L (0-41); Albumin Level 3.8 g/dL (3.5-5.2); Alkaline Phosphatase 59 U/L (40-130); Anion Gap 15.1 (5-19); Aspartate Amino Transferase 9 U/L (0-40); Blood Urea Nitrogen 29 mg/dL (8-23); Calcium 8.6 mg/dL (8.5-10.5); Carbon Dioxide 30 mmol/L (22-29); Chloride 98 mmol/L (98-107); Creatinine Clr Calc Pharmacy 83.7887; Globulin 2.2 g/dL (1.3-4.6); Glomerular Filtration Rate 97.3 mL/min (90-130); Glucose 130 mg/dL (65-115); Osmolality Calculated 294 mOsm/kg (285-295); Potassium 5.1 mmol/L (3.5-5.1); Sodium 138 mmol/L (136-145); Total Bilirubin 0.3 mg/dL (0.15-1.2)
[2023-09-26] MEDS: azithromycin 500 MG in sodium chloride 0.9% 250 ML 250 MG IV (08:40)
== END 2023-09-26 15:25 | disposition home or self-care (01) | DRG 190 ==
LOC: ER 09-22 00:35 → ER IP 09-22 03:20 → MEDSURG 09-22 13:32
PROVIDERS: Admitting Provider Internal Medicine; Emergency Provider Emergency Medicine; PCP Family Medicine; Visit Provider Family Medicine
DX: J44.0 Chronic obstructive pulmonary disease with (acute) lower respiratory infection (principal); J18.9 Pneumonia, unspecified organism; J96.01 Acute respiratory failure with hypoxia; E46 Unspecified protein-calorie malnutrition; Z68.1 Body mass index [BMI] 19.9 or less, adult; J44.1 Chronic obstructive pulmonary disease with (acute) exacerbation; Z87.891 Personal history of nicotine dependence; F10.20 Alcohol dependence, uncomplicated; Z86.16 Personal history of COVID-19; F41.9 Anxiety disorder, unspecified; M62.50 Muscle wasting and atrophy, not elsewhere classified, unspecified site; B96.89 Other specified bacterial agents as the cause of diseases classified elsewhere
CPT/HCPCS: 36415; 71045; 71275; 80048; 80053; 83605; 83880; 84484; 85025; 85378; 86403; 87040; 87070; 87077; 87186; 87205; 87449; 87486; 87581; 87633; 87641; 93005; 94640; 94664; 96365; 96366; 96367; 96372; 96375; 99285; G0378; J0456; J0696; J1650; J2920; J2930; J7050; J7614; Q9967

== ENCOUNTER 2023-10-17 10:19 | Emergency (ER) | payer MEDICAID, SELFPAY ==
[2023-10-17 10:26] VITALS: BMI 16.6
[2023-10-17 10:29] VITALS: BP 91/73; PULSE 88; RESP 17; TEMP 36.6; O2SAT 97
--- NOTE | 2023-10-17 10:29 | XR_ITS ---
WS: [id number] Exam: XR chest 1V portable [id number] Date/Time of Exam: 10/17/2023 10:33 AM Reason For Exam: sob Comparison 09/22/2023. The lungs are hyperinflated and clear. No pleural effusion. Normal cardiomediastinal silhouette. Bony structures are intact. IMPRESSION: 1. Marked pulmonary hyperinflation. No acute process.
--- NOTE | 2023-10-17 10:29 | ECG_ITS ---
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 Measurements Intervals [place] Rate: 90 P: 90 AR: 165 QRS: 79 QRSD: 89 T: 64 QT: 338 QTc: 414 Interpretive Statements SINUS RHYTHM RIGHT ATRIAL ENLARGEMENT [0.3mV P-WAVE] POSSIBLE LEFT ATRIAL ENLARGEMENT [-0.1mV P-WAVE IN V1/V2] Compared to ECG 09/22/2023 14:53:08 Sinus tachycardia no longer present T-wave abnormality no longer present Electronically Signed On 10-17-2023 10:32:55 CDT by Reji Evans M.D. [id number]
--- NOTE | 2023-10-17 10:35 | ED_ITS ---
HPI - SOB/Dyspnea 2 General: Chief Complaint: Shortness of Breath/Dyspnea Stated Complaint: SOB Time Seen by Provider: 10/17/23 10:32 Source: patient Mode of arrival: ambulatory Limitations: no limitations History of Present Illness: HPI Narrative: 62-year-old male has a history of COPD h e had been admitted here 2 weeks ago for pneumonia he is finished his antibiotics steroids states he is continue to have some shortness of breath and cough and feeling congested. States this is worse with exertion denies any chest pain pulse ox here is normal on room air he denies any fevers Associated symptoms: Deny abdominal pain, chest pain, fever(s), nausea or vomiting Review of Systems 2 Const: Denies: fever(s), chills, body aches or change in appetite ENMT: Denies: throat pain or dental pain Card: Denies: chest pain Resp: Reports: dyspnea and non-productive cough GI: Denies: abdominal pain, nausea, vomiting or diarrhea : Denies: dysuria Musc: Denies: neck pain or back pain Skin/Breast: Denies: rash Neuro: Denies: headache(s) PFSH ED 2 PFSH: Medical History Tobacco use disorder, severe, in sustained remission Alcohol use disorder, severe, dependence Chronic obstructive pulmonary disease History of COVID-19 Family History Other Clotting disorder Lung disease Denies family history of Diabetes CAD (coronary artery disease) Dementia Hyperlipidemia Psychiatric illness Chronic kidney disease (CKD) Anesthesia complication Bleeding disorder Cancer Hypertension Stroke Social History Smoking and tobacco/nicotine status: former use of tobacco/nicotine Quit status (tobacco/nicotine): has quit using Year quit tobacco: 2006 Alcohol intake: former Year of sobriety/quit date alcohol: 2006 Substance/Drug Use: current Substance/Drug use frequency: daily Other substance/drug use details: 1 joint a day Lives independently: Yes Marital status: Number of children: 4 Current occupational status: disabled Special airam needs: No Agree to transfusion: Yes Physical Exam 2 Const: COMMON NORMALS: no acute distress, patient oriented x3 and healthy appearing HENMT: COMMON NORMALS: normocephalic and atraumatic HEAD & SCALP: n ormocephalic and atraumatic Eye: COMMON NORMALS: conjunctivae normal CONJUNCTIVA: Yes conjunctivae normal Neck/C-Spine: COMMON NORMALS: full ROM and supple Chest: COMMONS NORMALS: normal inspection of the chest and normal palpation of entire chest wall Resp: COMMON NORMALS: normal respiratory effort, No retractions, No use of accessory muscles and clear to auscultation bilaterally AUSCULTATION: clear to auscultation bilaterally Cardio: COMMON NORMALS: regular rate, regular rhythm and No murmurs present (Cardio) RATE: regular rate RHYTHM: regular rhythm Extremity: COMMON NORMALS: normal to inspection and full ROM Neuro: COMMON NORMALS: patient oriented x3, moves all extremities and no focal motor deficits Psych: COMMON NORMALS: mental status grossly normal, Normal thought process present and cooperative THOUGHT PROCESS: Normal thought process present Skin: COMMON NORMALS: no rashes or lesions noted and no wounds GENERAL SKIN EXAM: no rashes or lesions noted Course 2 Vital Signs: Vital signs: Vital Signs Temperature 97.9 F 10/17/23 10:29 Pulse Rate 85 10/17/23 11:35 Respiratory Rate 16 10/17/23 11:32 Blood Pressure 91/73 10/17/23 10:29 Pulse Oximetry 97 10/17/23 11:32 Oxygen Delivery Me thod Room Air 10/17/23 11:32 MDM - SOB/Dyspnea Medical Decision Making Patient presents here COPD exacerbation he has no signs of pneumonia here he is stable for discharge at this time he is to follow-up with his PCP and return if worsening. Medical Records I reviewed the patient's medical records. Lab Data I reviewed the patient's lab results. 10/17/23 10:40 10/17/23 10:40 Labs/Radiology: Laboratory Results WBC 8.33 10^3/uL (3.29-11.43) 10/17/23 10:40 RBC 4.72 10^6/uL (3.85-5.65) 10/17/23 10:40 Hgb 13.80 g/dL (11.27-16.99) 10/17/23 10:40 Hct 41.9 % (37-53) 10/17/23 10:40 MCV 88.8 fl (82-101) 10/17/23 10:40 MCH 29.2 pg (27-33) 10/17/23 10:40 MCHC 32.9 g/dL (30-55) 10/17/23 10:40 RDW 13.1 % (12.1-15.1) 10/17/23 10:40 Plt Count 283 10^3/cmm (157-399) 10/17/23 10:40 MPV 9.3 fL (7.4-10.4) 10/17/23 10:40 Neut % (Auto) 69.9 % 10/17/23 10:40 Lymph % (Auto) 18.4 % 10/17/23 10:40 [place] % (Auto) 9.8 % 10/17/23 10:40 Eos % (Auto) 1.0 % 10/17/23 10:40 Baso % (Auto) 0.4 % 10/17/23 10:40 Neut # (Auto) 5.83 10^3/uL (1.8-7.7) 10/17/23 10:40 Lymph # (Auto) 1.5 10^3/uL (0.8-4.8) 10/17/23 10:40 [place] # (Auto) 0.8 10^3/uL (0.2-0.9) 10/17/23 10:40 Eos # (Auto) 0.1 10^3/uL (0.0-0.8) 10/17/23 10:40 Baso # (Auto) 0.0 10^3/uL (0.0-0.1) 10/17/23 10:40 Nucleated RBC % (auto) 0 % 10/17/23 10:40 Nucleated RBCs # 0.0 /100WBC 10/17/23 10:40 Sodium 142 mmol/L (136-145) 10/17/23 10:40 Potassium 4.6 mmol/L (3.5-5.1) 10/17/23 10:40 Chloride 103 mmol/L (98-107) 10/17/23 10:40 Carbon Dioxide 29 mmol/L (22-29) 10/17/23 10:40 Anion Gap 14.6 (5-19) 10/17/23 10:40 BUN 11 mg/dL (8-23) 10/17/23 10:40 Creatinine 0.7 mg/dL (0.7-1.2) 10/17/23 10:40 GFR Calculation 113.5 mL/min (90-130) 10/17/23 10:40 Glucose 71 mg/dL (65-115) 10/17/23 10:40 Calculated Osmolality 292 mOsm/kg (285-295) 10/17/23 10:40 Calcium 9.4 mg/dL (8.5-10.5) 10/17/23 10:40 Total Bilirubin 0.4 mg/dL (0.15-1.2) 10/17/23 10:40 AST 12 U/L (0-40) 10/17/23 10:40 ALT 15 U/L (0-41) 10/17/23 10:40 Alkaline Phosphatase 80 U/L (40-130) 10/17/23 10:40 NT-Pro-B Natriuret Pep 63 pg/mL (0-125) 10/17/23 10:40 Total Protein 7.3 g/dL (6.6-8.7) 10/17/23 10:40 Albumin 4.1 g/dL (3.5-5.2) 10/17/23 10:40 Globulin 3.2 g/dL (1.3-4.6) 10/17/23 10:40 Influenza Type A Ag negative (Negative) 10/17/23 10:44 Influenza Type B Ag negative (Negative) 10/17/23 10:44 SARS-CoV-2 Ag (Rapid) negative (Negative) 10/17/23 10:44 All radiology interpretation(s) finalized by discharge EKG Data EKG 1: I personally reviewed and interpreted this EKG as follows: EKG Interpretation Date: 10/17/23 EKG interpretation time: 10:29 Interpretation: nsr hr [address] or t wave abnormalities qrs 89 qtc 385 Discharge Plan Discharge Patient Disposition: Home Clinical Impression: Acute exacerbation of chronic obstructive airways disease Condition: Stable Prescriptions: No Action ipratropium bromide 0.02 % solution See Rx Instructions .ROUTE .COMPLEX Qty: 150 1RF Dose Instruction: USE 1 VIAL PER NEBULIZER FOUR TIMES DAILY NEEDED FOR SHORTNESS OF BREATH OR WHEEZING Rx Instructions: USE 1 VIAL PER NEBULIZER FOUR TIMES DAILY NEEDED FOR SHORTNESS OF BREATH OR WHEEZING Breztri Aerosphere 160-9-4.8 mcg/actuation HFA aerosol inhaler 2 inh inhalation BID Qty: 10.7 3RF levalbuterol tartrate [Xopenex HFA] 45 mcg/actuation HFA aerosol inhaler 2 inh inhalation Q6H Qty: 15 6RF Rx Instructions: Approved X 90 days on 10/02/23 Discharge Orders: Discharge ED (Routine); Ordered 10/17/23 Ordered By: Rory Mari Referrals: Santiago Cochran MD [Primary Care Provider] - 4-7 days Discharge Diet: Advance as tolerated Discharge Activity: Resume usual activity Patient Instructions: COPD (Chronic Obstructive Pulmonary Disease) (ED) Coding Level of Care Code ED Customer Experience Consultant for Bhavana Fu
[2023-10-17 10:48] LABS: Basophils % 0.4 %; Eosinophils # 0.1 10^3/uL (0.0-0.8); Hematocrit 41.9 % (37-53); Lymphocytes # 1.5 10^3/uL (0.8-4.8); Lymphocytes % 18.4 %; Mean Corpuscular HGB Conc 32.9 g/dL (30-55); Mean Corpuscular Hemoglobin 29.2 pg (27-33); Mean Corpuscular Volume 88.8 fl (82-101); Mean Platelet Volume 9.3 fL (7.4-10.4); Monocytes # 0.8 10^3/uL (0.2-0.9); Monocytes % 9.8 %; Neutrophils # 5.83 10^3/uL (1.8-7.7); Neutrophils % 69.9 %; Nucleated Red Blood Cells % 0 %; Platelet Count 283 10^3/cmm (157-399); Red Blood Count 4.72 10^6/uL (3.85-5.65); Red Cell Distribution Width 13.1 % (12.1-15.1); White Blood Count 8.33 10^3/uL (3.29-11.43)
[2023-10-17 11:14] LABS: Alanine Aminotransferase 15 U/L (0-41); Albumin Level 4.1 g/dL (3.5-5.2); Alkaline Phosphatase 80 U/L (40-130); Anion Gap 14.6 (5-19); Aspartate Amino Transferase 12 U/L (0-40); Blood Urea Nitrogen 11 mg/dL (8-23); Calcium 9.4 mg/dL (8.5-10.5); Carbon Dioxide 29 mmol/L (22-29); Chloride 103 mmol/L (98-107); Creatinine Clr Calc Pharmacy 95.7585; Globulin 3.2 g/dL (1.3-4.6); Glomerular Filtration Rate 113.5 mL/min (90-130); Glucose 71 mg/dL (65-115); NT Pro B Type Natriuretic Pept 63 pg/mL (0-125); Osmolality Calculated 292 mOsm/kg (285-295); Potassium 4.6 mmol/L (3.5-5.1); Sodium 142 mmol/L (136-145); Total Bilirubin 0.4 mg/dL (0.15-1.2); Total Protein 7.3 g/dL (6.6-8.7)
[2023-10-17] MEDS: ipratropium-albuterol 3 mL Neb INHALATION (11:31)
[2023-10-17 11:32] VITALS: PULSE 86; RESP 16; O2SAT 97
[2023-10-17 11:34] LABS: Influenza A by IFA negative (Negative); Influenza B by IFA negative (Negative)
[2023-10-17 11:35] VITALS: PULSE 85
[2023-10-17 11:36] LABS: SARS Covid-2 Antigen negative (Negative)
[2023-10-17] MEDS: dexamethasone 10 mg/mL INJ IVP (11:42)
[2023-10-17 12:00] VITALS: BP 131/83; PULSE 82; RESP 18; O2SAT 97
== END 2023-10-17 12:01 | disposition home or self-care (01) ==
PROVIDERS: Emergency Provider Emergency Medicine; PCP Family Medicine
DX: J44.1 Chronic obstructive pulmonary disease with (acute) exacerbation (principal); Z11.52 Encounter for screening for COVID-19; Z87.891 Personal history of nicotine dependence
CPT/HCPCS: 71045; 80053; 83880; 85025; 87426; 87804; 93005; 94640; 96374; 99285; J1100

== ENCOUNTER → 2023-12-06 09:30 | Outpatient (BNVA) | payer MEDICARE, MEDICAID, SELFPAY | PROVIDERS: PCP Family Medicine; Visit Provider Internal Medicine Pulmonary Disease | DX: J44.9 Chronic obstructive pulmonary disease, unspecified (principal); F12.11 Cannabis abuse, in remission; R91.1 Solitary pulmonary nodule; Z87.891 Personal history of nicotine dependence | CPT/HCPCS: 99214 ==

== ENCOUNTER 2024-05-12 14:13 | Outpatient (CLI) | payer OTHER, MEDICAID, SELFPAY ==
--- NOTE | 2024-05-12 14:45 | CTR_ITS ---
PROCEDURE INFORMATION: Exam: CT Chest Without Contrast; Diagnostic Exam date and time: 05/12/2024 3:02 PM Age: 63 years old Clinical indication: Condition or disease; Lung condition and disease; Pulmonary nodule, solitary; Additional info: 1yr f/u lung nodule found on CT TECHNIQUE: Imaging protocol: Diagnostic computed tomography of the chest without contrast. Radiation optimization: All CT scans at this facility use at least one of these dose optimization techniques: automated exposure control; mA and/or kV adjustment per patient size (includes targeted exams where dose is matched to clinical indication); or iterative reconstruction. COMPARISON: CT angio chest PE protcl [id number] 09/23/2023 12:46 PM RADIATION DOSE METRICS: Total DLP (mGy-cm): 258.05 FINDINGS: Lungs: There is relatively severe emphysema. There is a calcified granuloma involving the right middle lobe. There is linear scarring at the lung bases. No noncalcified pulmonary nodules are appreciated. Pleural spaces: Unremarkable. No pneumothorax. No pleural effusion. Heart: Unremarkable. No cardiomegaly. No pericardial effusion. Lymph nodes: Unremarkable. No enlarged lymph nodes. Vasculature: The thoracic aorta is normal in caliber without aneurysm. There is calcified plaque involving the aorta. No calcified plaque is noted involving the coronary vessels. Bones/joints: Unremarkable. No acute fracture. Soft tissues: Unremarkable. CT/CT chest wo con [id number] IMPRESSION: 1. Emphysema. 2. No noncalcified pulmonary nodules are appreciated. COMMENTS: The presence of pulmonary emphysema on CT is an independent risk factor for lung cancer. In the absence of a history or active diagnosis of lung cancer, it is recommended that this patient with emphysema be evaluated for enrollment in a low dose CT lung cancer screening program.
== END 2024-05-12 14:14 | disposition home or self-care (01) ==
LOC: RAD 14:14
PROVIDERS: PCP Family Medicine; Visit Provider Family Medicine
DX: J43.9 Emphysema, unspecified (principal); J84.10 Pulmonary fibrosis, unspecified; I25.84 Coronary atherosclerosis due to calcified coronary lesion
CPT/HCPCS: 71250

== ENCOUNTER 2024-05-19 19:20 | Emergency (ER) | payer MEDICARE, MEDICAID, SELFPAY ==
--- NOTE | 2024-05-19 19:22 | ECG_ITS ---
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 Measurements Intervals [place] Rate: 106 P: 85 [place]: 158 QRS: 77 QRSD: 90 T: 65 QT: 306 QTc: 408 Interpretive Statements SINUS TACHYCARDIA RIGHT ATRIAL ENLARGEMENT [0.3mV P-WAVE] NONSPECIFIC T-WAVE ABNORMALITY Compared to ECG 10/17/2023 10:29:36 T-wave abnormality now present Sinus rhythm no longer present Electronically Signed On 05-20-2024 18:12:06 CDT by Alex Gambino M.D. [email or web address]
--- NOTE | 2024-05-19 19:23 | XRR_ITS ---
PROCEDURE INFORMATION: Exam: XR Chest Exam date and time: 05/19/2024 7:51 PM Age: 63 years old Clinical indication: Shortness of breath; Additional info: Cp TECHNIQUE: Imaging protocol: Radiologic exam of the chest. Views: 1 view. COMPARISON: CT chest con [id number] 05/12/2024 3:02 PM FINDINGS: Lungs: Both lungs demonstrate diffuse hyperinflation along with chronic interstitial coarsening. However, I see no evidence of mass or confluent infiltrate. Pleural spaces: Unremarkable. No pleural effusion. No pneumothorax. Heart/Mediastinum: Unremarkable. No cardiomegaly. Bones/joints: Unremarkable. XR/XR chest 1V portable [id number] IMPRESSION: Stable COPD changes
[2024-05-19 19:41] VITALS: BP 146/75; PULSE 109; RESP 22; TEMP 37.7; O2SAT 90
[2024-05-19 20:50] LABS: Basophils % 0.2 %; Eosinophils % 0.2 %; Hematocrit 45.3 % (37-53); Lymphocytes # 0.9 10^3/uL (0.8-4.8); Lymphocytes % 5.3 %; Mean Corpuscular HGB Conc 32.9 g/dL (30-55); Mean Corpuscular Hemoglobin 28.9 pg (27-33); Mean Corpuscular Volume 87.8 fl (82-101); Neutrophils # 14.46 10^3/uL (1.8-7.7); Neutrophils % 87.9 %; Nucleated Red Blood Cells % 0 %; Platelet Count 288 10^3/cmm (157-399); Red Blood Count 5.16 10^6/uL (3.85-5.65); Red Cell Distribution Width 13.4 % (12.1-15.1); White Blood Count 16.45 10^3/uL (3.29-11.43)
[2024-05-19 21:13] LABS: Alanine Aminotransferase 16 U/L (0-41); Albumin Level 4.6 g/dL (3.5-5.2); Alkaline Phosphatase 91 U/L (40-130); Anion Gap 15.3 (5-19); Aspartate Amino Transferase 13 U/L (0-40); Blood Urea Nitrogen 15 mg/dL (8-23); Calcium 9.3 mg/dL (8.5-10.5); Carbon Dioxide 28 mmol/L (22-29); Chloride 97 mmol/L (98-107); Creatinine Clr Calc Pharmacy 78.7488; Globulin 2.8 g/dL (1.3-4.6); Glomerular Filtration Rate 84.7 mL/min (90-130); Glucose 110 mg/dL (65-115); Osmolality Calculated 283 mOsm/kg (285-295); Potassium 4.3 mmol/L (3.5-5.1); Sodium 136 mmol/L (136-145); Total Bilirubin 0.8 mg/dL (0.15-1.2); Total Protein 7.4 g/dL (6.6-8.7)
[2024-05-19 21:46] VITALS: PULSE 101; RESP 20; O2SAT 90
[2024-05-19] MEDS: acetaminophen 500 mg Tablet 1000 MG PO (21:46)
[2024-05-19] MEDS: ipratropium-albuterol 3 mL Neb INHALATION (21:46)
[2024-05-19] MEDS: predniSONE 20 mg Tablet 60 MG PO (21:47)
--- NOTE | 2024-05-19 21:51 | W.ED.SOB ---
HPI - SOB/Dyspnea General: Chief Complaint: Shortness of Breath/Dyspnea Stated Complaint: SOB Time Seen by Provider: 05/19/24 21:36 Source: patient Mode of arrival: ambulatory Limitations: no limitations History of Present Illness: HPI Narrative: 63-year-old male has a history of COPD states over the last 2 days he has had an increasing cough some congestion low-grade fevers and chills. Patient states he had pneumonia in the past and this feels similar. He denies any vomiting or diarrhea he is able speak full senses here in no distress. Associated symptoms: Deny abdominal pain, chest pain, fever(s), nausea or vomiting Related Data Previous Rx's Medication Instructions Recorded levalbuterol tartrate 45 2 inh inhalation Q6H PRN SOB or 01/16/24 mcg/actuation aerosol inhaler Wheezing #15 grams (Xopenex HFA) budesonide 160 mcg-glycopyr 9 See Rx Instructions .Route 02/03/24 mcg-formot 4.8 mcg/actuation HFA .COMPLEX #10.7 grams inhaler (Breztri Aerosphere) ipratropium 0.5 mg-albuterol 3 mg 3 ml inhalation Q4H PRN wheezing 04/24/24 (2.5 mg base)/3 mL nebulization #90 mL soln trazodone 50 mg tablet 50 mg PO DAILY #30 tabs 04/24/24 doxycycline hyclate 100 mg tablet 100 mg PO BID 7 days #14 tabs 05/19/24 prednisone 50 mg tablet 50 mg PO DAILY #5 tabs 05/19/24 Allergies Allergy/AdvReac Type Severity Reaction Status Date / Time No Known Allergies Allergy Verified 05/19/24 19:44 Review of Systems Const: Reports: chills; Denies: fever(s), body aches or change in appetite ENMT: Denies: throat pain or dental pain Card: Denies: chest pain Resp: Reports: dyspnea, productive cough and wheezing GI: Denies: abdominal pain, nausea, vomiting or diarrhea Musc: Denies: neck pain or back pain Skin/Breast: Denies: rash Neuro: Denies: headache(s) PFSH ED PFSH: Medical History Tobacco use disorder, severe, in sustained remission Alcohol use disorder, severe, dependence Chronic obstructive pulmonary disease History of COVID-19 Family History Other Clotting disorder Lung disease Denies family history of Diabetes CAD (coronary artery disease) Dementia Hyperlipidemia Psychiatric illness Chronic kidney disease (CKD) Anesthesia complication Bleeding disorder Cancer Hypertension Stroke Social History Smoking and tobacco/nicotine status: former use of tobacco/nicotine (does not smoke tobacco anymore) Quit status (tobacco/nicotine): has quit using Year quit tobacco: 2006 Alcohol intake: former Year of sobriety/quit date alcohol: 2005 Substance/Drug Use: current Substance/Drug use frequency: daily Other substance/drug use details: 1 joint a day Lives independently: Yes Marital status: Number of children: 4 Current occupational status: disabled Special airam needs: No Agree to transfusion: Yes Physical Exam Const: COMMON NORMALS: patient oriented x3 HENMT: COMMON NORMALS: normocephalic and atraumatic HEAD & SCALP: normocephalic and atraumatic Neck/C-Spine: COMMON NORMALS: full ROM and supple Chest: COMMONS NORMALS: normal inspection of the chest Resp: COMMON NORMALS: normal respiratory effort, No retractions and No use of accessory muscles OTHER: mild wheezing Cardio: COMMON NORMALS: regular rate, regular rhythm and No murmurs present (Cardio) RATE: regular rate RHYTHM: regular rhythm Extremity: COMMON NORMALS: normal to inspection and full ROM Neuro: COMMON NORMALS: patient oriented x3, moves all extremities and no focal motor deficits Psych: COMMON NORMALS: mental status grossly normal, Normal thought process present and cooperative THOUGHT PROCESS: Normal thought process present Skin: COMMON NORMALS: no rashes or lesions noted and no wounds GENERAL SKIN EXAM: no rashes or lesions noted Course Vital Signs: Vital signs: Vital Signs Temperature 100 F H 05/19/24 19:41 Pulse Rate 107 H 05/19/24 21:59 Respiratory Rate 20 H 05/19/24 21:46 Blood Pressure 146/75 05/19/24 19:41 Pulse Oximetry 90 05/19/24 21:46 Oxygen Delivery Me thod Room Air 05/19/24 21:46 MDM - SOB/Dyspnea Medical Decision Making Patient presents with cough congestion has a history of COPD likely has a bronchitis we will start patient on doxycycline along with steroids he is to continue breathing treatments at home did have him ambulate here oxygen stayed around 93% with ambulation he has no severe dyspnea I informed him to return if worsening he is follow-up with PCP he understands agrees to plan. Medical Records I reviewed the patient's medical records. Lab Data I reviewed the patient's lab results. 05/19/24 20:22 05/19/24 20:22 Labs/Radiology: Radiology Impressions Chest X-Ray 05/19/24 19:23 IMPRESSION: Stable COPD changes Laboratory Results WBC 16.45 10^3/uL (3.29-11.43) H 05/19/24 20:22 RBC 5.16 10^6/uL (3.85-5.65) 05/19/24 20:22 Hgb 14.90 g/dL (11.27-16.99) 05/19/24 20:22 Hct 45.3 % (37-53) 05/19/24 20:22 MCV 87.8 fl (82-101) 05/19/24 20:22 MCH 28.9 pg (27-33) 05/19/24 20:22 MCHC 32.9 g/dL (30-55) 05/19/24 20:22 RDW 13.4 % (12.1-15.1) 05/19/24 20:22 Plt Count 288 10^3/cmm (157-399) 05/19/24 20:22 MPV 10.0 fL (7.4-10.4) 05/19/24 20:22 Neut % (Auto) 87.9 % 05/19/24 20:22 Lymph % (Auto) 5.3 % 05/19/24 20:22 [place] % (Auto) 6.0 % 05/19/24 20:22 Eos % (Auto) 0.2 % 05/19/24 20:22 Baso % (Auto) 0.2 % 05/19/24 20:22 Neut # (Auto) 14.46 10^3/uL (1.8-7.7) H 05/19/24 20:22 Lymph # (Auto) 0.9 10^3/uL (0.8-4.8) 05/19/24 20:22 [place] # (Auto) 1.0 10^3/uL (0.2-0.9) H 05/19/24 20:22 Eos # (Auto) 0.0 10^3/uL (0.0-0.8) 05/19/24 20:22 Baso # (Auto) 0.0 10^3/uL (0.0-0.1) 05/19/24 20:22 Nucleated RBC % (auto) 0 % 05/19/24 20:22 Nucleated RBCs # 0.0 /100WBC 05/19/24 20:22 Sodium 136 mmol/L (136-145) 05/19/24 20:22 Potassium 4.3 mmol/L (3.5-5.1) 05/19/24 20:22 Chloride 97 mmol/L (98-107) L 05/19/24 20:22 Carbon Dioxide 28 mmol/L (22-29) 05/19/24 20:22 Anion Gap 15.3 (5-19) 05/19/24 20:22 BUN 15 mg/dL (8-23) 05/19/24 20:22 Creatinine 0.9 mg/dL (0.7-1.2) 05/19/24 20:22 GFR Calculation 84.7 mL/min (90-130) L 05/19/24 20:22 Glucose 110 mg/dL (65-115) 05/19/24 20:22 Calculated Osmolality 283 mOsm/kg (285-295) L 05/19/24 20:22 Calcium 9.3 mg/dL (8.5-10.5) 05/19/24 20:22 Total Bilirubin 0.8 mg/dL (0.15-1.2) 05/19/24 20:22 AST 13 U/L (0-40) 05/19/24 20:22 ALT 16 U/L (0-41) 05/19/24 20:22 Alkaline Phosphatase 91 U/L (40-130) 05/19/24 20:22 Total Protein 7.4 g/dL (6.6-8.7) 05/19/24 20:22 Albumin 4.6 g/dL (3.5-5.2) 05/19/24 20:22 Globulin 2.8 g/dL (1.3-4.6) 05/19/24 20:22 All radiology interpretation(s) finalized by discharge Discharge Plan Discharge Patient Disposition: Home Clinical Impression: Bronchitis Condition: Stable Prescriptions: New prednisone 50 mg tablet 50 mg PO DAILY Qty: 5 0RF doxycycline hyclate 100 mg tablet 100 mg PO BID 7 Days Qty: 14 0RF No Action ipratropium-albuterol 0.5 mg-3 mg(2.5 mg base)/3 mL solution for nebulization 3 ml inhalation Q4H PRN (Reason: wheezing) Qty: 90 3RF trazodone 50 mg tablet 50 mg PO DAILY Qty: 30 1RF levalbuterol tartrate [Xopenex HFA] 45 mcg/actuation HFA aerosol inhaler 2 inh inhalation Q6H PRN (Reason: SOB or Wheezing) Qty: 15 6RF Rx Instructions: Approved 01/16/24- 04/14/24 Breztri Aerosphere 160-9-4.8 mcg/actuation HFA aerosol inhaler See Rx Instructions .ROUTE .COMPLEX Qty: 10.7 3RF Dose Instruction: INHALE TWO PUFFS BY MOUTH TWICE DAILY Rx Instructions: INHALE TWO PUFFS BY MOUTH TWICE DAILY Discharge Orders: Discharge ED (Routine); Ordered 05/19/24 Ordered By: Rory Mari Referrals: Santiago Cochran MD [Primary Care Provider] - 4-7 days Discharge Diet: Advance as tolerated Discharge Activity: Resume usual activity Patient Instructions: Acute Bronchitis (ED) Coding Level of Care Code ED Disassembler for Bhavana Fu
[2024-05-19 21:59] VITALS: PULSE 107
[2024-05-19 22:40] VITALS: BP 98/58; PULSE 87; O2SAT 94
[2024-05-19 23:03] LABS: Covid PCR NEGATIVE (Negative); Influenza A NEGATIVE (Negative); Influenza B NEGATIVE (Negative); Respiratory Syncytial Virus Ce NEGATIVE (Negative)
== END 2024-05-19 23:00 | disposition home or self-care (01) ==
PROVIDERS: Emergency Provider Emergency Medicine; PCP Family Medicine
DX: J40 Bronchitis, not specified as acute or chronic (principal); J44.9 Chronic obstructive pulmonary disease, unspecified; Z87.891 Personal history of nicotine dependence
CPT/HCPCS: 0241U; 36415; 71045; 80053; 85025; 93005; 94640; 99285; J7512

== ENCOUNTER 2024-05-21 10:07 | Inpatient (IN) | payer MEDICARE, MEDICAID, SELFPAY ==
[2024-05-21] VITALS (11 sets, daily range): BP systolic 110–138; BP diastolic 69–89; PULSE 64–113; RESP 18–24; TEMP 36.4–36.9; O2SAT 93–100; BMI 17.7; BMI 17.6
--- NOTE | 2024-05-21 10:12 | ECG_ITS ---
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 Measurements Intervals [place] Rate: 121 P: 80 MS: 187 QRS: 80 QRSD: 90 T: 62 QT: 286 QTc: 406 Interpretive Statements SINUS TACHYCARDIA WITH VENTRICULAR PREMATURE COMPLEXES NONSPECIFIC T-WAVE ABNORMALITY ABNORMAL RHYTHM ECG Compared to ECG 05/19/2024 19:43:12 Ventricular premature complex(es) now present T-wave abnormality still present Electronically Signed On 05-21-2024 12:07:40 CDT by Alex Gambino M.D. [email or web address]
--- NOTE | 2024-05-21 10:21 | CT_ITS ---
WS: [id number] CT CHEST ANGIOGRAPHY WITH REFORMATS HISTORY: sob TECHNIQUE: Contiguous axial images are obtained through the chest during arterial injection of intrav enous contrast. Images are reconstructed to evaluate the pulmonary arteries. MIP imaging also reviewe d. All CT scans at [facility] use at least one of these dose optimization techniques: automat ed exposure control; mA and/or kV adjustment per patient size (includes targeted exams where dose is matched to clinical indication); or iterative reconstruction. CONTRAST: Omnipaque 350; 100 mL IV. DLP: 208.24 mGy.cm COMPARISON: 09/23/2023 Good opacification of the pulmonary arteries. No pulmonary emboli are identified. Normal size thoraci c aorta with mild atherosclerotic plaque. Heart size is normal. No RIGHT heart strain. No pericardial or pleural effusions. Minimally prominent RIGHT hilar lymph node at 10 mm. Severe pulmonary hyperexpansion and emphysema. Greater distribution of bulla and bleb disease through out the LEFT lung. New area of subsolid opacification in the LEFT upper lobe. Subsolid opacification with additional interstitial thickening. New since 05/12/2024. No adrenal mass. No destructive bone lesions. CT/CT angio chest PE protcl [id number] IMPRESSION: 1. New subsolid consolidation consistent with pneumonia RIGHT upper lobe. Appr oximately 30% of the RIGHT upper lobe is involved with pneumonia. 2. Severe advanced emphysema. 3. LEFT hilar indeterminate lymph node. Probably reactive on the basis of the pneumonia. 4. No pulmonary embolism.
--- NOTE | 2024-05-21 10:21 | XR_ITS ---
WS: [id number] Portable AP upright chest, 05/21/2024 Clinical Data: sob Comparison: Portable chest, 05/19/2024 Findings: The patchy opacity in the right upper lobe has increased in the last 2 days. This patchy op acity could represent acute pneumonia. The left lung is clear. The diaphragms are flattened. The hear t is normal. The aortic arch shows tortuosity. Monitor leads are on the chest wall. XR/XR chest 1V portable [id number] Impression: 1. Increase in patchy opacity in the right upper lobe which could indicate acut e pneumonia. 2. Atherosclerosis and hyperinflation.
[2024-05-21] MEDS: ipratropium-albuterol 3 mL Neb INHALATION ×3 (10:31→21:04)
[2024-05-21 10:40] LABS: Basophils # 0.1 10^3/uL (0.0-0.1); Basophils % 0.2 %; Hematocrit 46.1 % (37-53); Lymphocytes # 1.4 10^3/uL (0.8-4.8); Mean Corpuscular HGB Conc 32.8 g/dL (30-55); Mean Corpuscular Hemoglobin 28.5 pg (27-33); Mean Corpuscular Volume 87.1 fl (82-101); Mean Platelet Volume 10.3 fL (7.4-10.4); Monocytes # 2.5 10^3/uL (0.2-0.9); Monocytes % 9.1 %; Neutrophils # 23.24 10^3/uL (1.8-7.7); Neutrophils % 84.6 %; Nucleated Red Blood Cells % 0 %; Platelet Count 332 10^3/cmm (157-399); Red Blood Count 5.29 10^6/uL (3.85-5.65); Red Cell Distribution Width 13.7 % (12.1-15.1); White Blood Count 27.45 10^3/uL (3.29-11.43)
--- NOTE | 2024-05-21 10:56 | ED_ITS ---
HPI - SOB/Dyspnea 2 General: Chief Complaint: Shortness of Breath/Dyspnea Stated Complaint: SOB Time Seen by Provider: 05/21/24 10:20 Source: patient Mode of arrival: ambulatory Limitations: no limitations History of Present Illness: HPI Narrative: 63-year-old male who states been having creasing cough fever congestion for last 3 days he seen here last night is prescribed doxycycline and steroids states that it worsened throughout the night having increasing cough and shortness of breath he was placed on 2 L of oxygen here due to hypoxia had some slight chest pain states been sharp in nature denies any vomiting or diarrhea Associated symptoms: Deny abdominal pain, chest pain, fever(s), nausea or vomiting Related Data Previous Rx's Medication Instructions Recorded levalbuterol tartrate 45 2 inh inhalation Q6H PRN SOB or 01/16/24 mcg/actuation aerosol inhaler Wheezing #15 grams (Xopenex HFA) budesonide 160 mcg-glycopyr 9 See Rx Instructions .Route 02/03/24 mcg-formot 4.8 mcg/actuation HFA .COMPLEX #10.7 grams inhaler ([employer] Aerosphere) ipratropium 0.5 mg-albuterol 3 mg 3 ml inhalation Q4H PRN wheezing 04/24/24 (2.5 mg base)/3 mL nebulization #90 mL soln trazodone 50 mg tablet 50 mg PO DAILY #30 tabs 04/24/24 doxycycline hyclate 100 mg tablet 100 mg PO BID 7 days #14 tabs 05/19/24 prednisone 50 mg tablet 50 mg PO DAILY #5 tabs 05/19/24 Allergies Allergy/AdvReac Type Severity Reaction Status Date / Time No Known Allergies Allergy Verified 05/21/24 10:18 Review of Systems 2 Const: Denies: fever(s), chills, body aches or change in appetite ENMT: Denies: throat pain or dental pain Card: Denies: chest pain Resp: Reports: dyspnea and productive cough GI: Denies: abdominal pain, nausea, vomiting or diarrhea Musc: Denies: neck pain or back pain Skin/Breast: Denies: rash Neuro: Denies: headache(s) PFSH ED 2 PFSH: Medical History Tobacco use disorder, severe, in sustained remission Alcohol use disorder, severe, dependence Chronic obstructive pulmonary disease History of COVID-19 Family History Other Clotting disorder Lung disease Denies family history of Diabetes CAD (coronary artery disease) Dementia Hyperlipidemia Psychiatric illness Chronic kidney disease (CKD) Anesthesia complication Bleeding disorder Cancer Hypertension Stroke Social History Smoking and tobacco/nicotine status: former use of tobacco/nicotine (does not smoke tobacco anymore) Quit status (tobacco/nicotine): has quit using Year quit tobacco: 2006 Alcohol intake: former Year of sobriety/quit date alcohol: 2005 Substance/Drug Use: current Substance/Drug use frequency: daily Other substance/drug use details: 1 joint a day Lives independently: Yes Marital status: Number of children: 4 Current occupational status: disabled Special airam needs: No Agree to transfusion: Yes Physical Exam 2 Const: COMMON NORMALS: patient oriented x3 HENMT: COMMON NORMALS: normocephalic and atraumatic HEAD & SCALP: n ormocephalic and atraumatic Neck/C-Spine: COMMON NORMALS: full ROM and supple Chest: COMMONS NORMALS: normal inspection of the chest Resp: COMMON NORMALS: No retractions and No use of accessory muscles A USCULTATION: rales on the right in the upper lung [place] Cardio: COMMON NORMALS: regular rate, regular rhythm and No murmurs present (Cardio) RATE: regular rate RHYTHM: regular rhythm Extremity: COMMON NORMALS: normal to inspection and full ROM Neuro: COMMON NORMALS: patient oriented x3, moves all extremities and no focal motor deficits Psych: COMMON NORMALS: mental status grossly normal, Normal thought process present and cooperative THOUGHT PROCESS: Normal thought process present Skin: COMMON NORMALS: no rashes or lesions noted and no wounds GENERAL SKIN EXAM: no rashes or lesions noted Course 2 Vital Signs: Vital signs: Vital Signs Temperature 98.4 F 05/21/24 10:12 Pulse Rate 64 05/21/24 11:08 Respiratory Rate 24 H 05/21/24 10:34 Blood Pressure 138/89 05/21/24 11:08 Pulse Oximetry 100 05/21/24 11:08 Oxygen Delivery Me thod Nasal Cannula 05/21/24 10:34 Oxygen Flow Rate 2 05/21/24 10:34 MDM - SOB/Dyspnea Medical Decision Making Patient presents here with pneumonia she is requiring oxygen he is failed outpatient treatment I spoke to the hospitalist will admit at this time CTA showed no signs of PE Medical Records I reviewed the patient's medical records. Lab Data I reviewed the patient's lab results. 05/21/24 10:23 05/21/24 10:23 Labs/Radiology: Radiology Impressions Chest CTA 05/21/24 10:21 IMPRESSION: 1. New subsolid consolidation consistent with pneumonia RIGHT upper lobe. Approximately 30% of the RIGHT upper lobe is involved with pneumonia. 2. Severe advanced emphysema. 3. LEFT hilar indeterminate lymph node. Probably reactive on the basis of the pneumonia. 4. No pulmonary embolism. Chest X-Ray 05/21/24 10:21 Impression: 1. Increase in patchy opacity in the right upper lobe which could indicate acute pneumonia. 2. Atherosclerosis and hyperinflation. Laboratory Results WBC 27.45 10^3/uL (3.29-11.43) H 05/21/24 10:23 RBC 5.29 10^6/uL (3.85-5.65) 05/21/24 10:23 Hgb 15.10 g/dL (11.27-16.99) 05/21/24 10:23 Hct 46.1 % (37-53) 05/21/24 10:23 MCV 87.1 fl (82-101) 05/21/24 10:23 MCH 28.5 pg (27-33) 05/21/24 10:23 MCHC 32.8 g/dL (30-55) 05/21/24 10:23 RDW 13.7 % (12.1-15.1) 05/21/24 10:23 Plt Count 332 10^3/cmm (157-399) 05/21/24 10:23 MPV 10.3 fL (7.4-10.4) 05/21/24 10:23 Neut % (Auto) 84.6 % 05/21/24 10:23 Lymph % (Auto) 5.0 % 05/21/24 10:23 [place] % (Auto) 9.1 % 05/21/24 10:23 Eos % (Auto) 0.0 % 05/21/24 10:23 Baso % (Auto) 0.2 % 05/21/24 10:23 Neut # (Auto) .24 10^3/uL (1.8-7.7) H 05/21/24 10:23 Lymph # (Auto) 1.4 10^3/uL (0.8-4.8) 05/21/24 10:23 [place] # (Auto) 2.5 10^3/uL (0.2-0.9) H 05/21/24 10:23 Eos # (Auto) 0.0 10^3/uL (0.0-0.8) 05/21/24 10:23 Baso # (Auto) 0.1 10^3/uL (0.0-0.1) 05/21/24 10:23 Nucleated RBC % (auto) 0 % 05/21/24 10:23 Nucleated RBCs # 0.0 /100WBC 05/21/24 10:23 Sodium 136 mmol/L (136-145) 05/21/24 10:23 Potassium 4.9 mmol/L (3.5-5.1) 05/21/24 10:23 Chloride 98 mmol/L (98-107) 05/21/24 10:23 Carbon Dioxide 25 mmol/L (22-29) 05/21/24 10:23 Anion Gap 17.9 (5-19) 05/21/24 10:23 BUN 20 mg/dL (8-23) 05/21/24 10:23 Creatinine 0.9 mg/dL (0.7-1.2) 05/21/24 10:23 GFR Calculation 84.7 mL/min (90-130) L 05/21/24 10:23 Glucose 121 mg/dL (65-115) H 05/21/24 10:23 Calculated Osmolality 286 mOsm/kg (285-295) 05/21/24 10:23 Calcium 9.3 mg/dL (8.5-10.5) 05/21/24 10:23 Total Bilirubin 0.6 mg/dL (0.15-1.2) 05/21/24 10:23 AST 13 U/L (0-40) 05/21/24 10:23 ALT 12 U/L (0-41) 05/21/24 10:23 Alkaline Phosphatase 86 U/L (40-130) 05/21/24 10:23 Troponin T Baseline 10 ng/L (0-15) 05/21/24 10:23 NT-Pro-B Natriuret Pep 177 pg/mL (0-125) H 05/21/24 10:23 Total Protein 6.8 g/dL (6.6-8.7) 05/21/24 10:23 Albumin 4.5 g/dL (3.5-5.2) 05/21/24 10:23 Globulin 2.3 g/dL (1.3-4.6) 05/21/24 10:23 All radiology interpretation(s) finalized by discharge EKG Data EKG 1: I personally reviewed and interpreted this EKG as follows: EKG Interpretation Date: 05/21/24 EKG interpretation time: 10:12 Interpretation: sinus tach hr [address] elevation qrs 90 qtc 358 EKG 2: I personally reviewed and interpreted this EKG as follows: EKG Interpretation Date: 05/21/24 EKG interpretation time: 11:53 Interpretation: nsr hr [address] or t wave abnormalities qrs 90 qtc 384 Discharge Plan Discharge Patient Disposition: Admitted As Inpatient Clinical Impression: Community acquired pneumonia Condition: Stable Prescriptions: No Action ipratropium-albuterol 0.5 mg-3 mg(2.5 mg base)/3 mL solution for nebulization 3 ml inhalation Q4H PRN (Reason: wheezing) Qty: 90 3RF trazodone 50 mg tablet 50 mg PO DAILY Qty: 30 1RF levalbuterol tartrate [Xopenex HFA] 45 mcg/actuation HFA aerosol inhaler 2 inh inhalation Q6H PRN (Reason: SOB or Wheezing) Qty: 15 6RF Breztri Aerosphere 160-9-4.8 mcg/actuation HFA aerosol inhaler See Rx Instructions .ROUTE .COMPLEX Qty: 10.7 3RF Dose Instruction: INHALE TWO PUFFS BY MOUTH TWICE DAILY Rx Instructions: INHALE TWO PUFFS BY MOUTH TWICE DAILY prednisone 50 mg tablet 50 mg PO DAILY Qty: 5 0RF doxycycline hyclate 100 mg tablet 100 mg PO BID 7 Days Qty: 14 0RF Referrals: Santiago Cochran MD [Primary Care Provider] - Coding Level of Care Code ED [employer]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
[2024-05-21 11:01] LABS: Troponin(5th) Baseline 10 ng/L (0-15)
[2024-05-21] MEDS: iohexol 350 mg/mL 500 mL Btl (per mL) IV (11:09)
[2024-05-21 11:11] LABS: Alanine Aminotransferase 12 U/L (0-41); Albumin Level 4.5 g/dL (3.5-5.2); Alkaline Phosphatase 86 U/L (40-130); Anion Gap 17.9 (5-19); Aspartate Amino Transferase 13 U/L (0-40); Blood Urea Nitrogen 20 mg/dL (8-23); Calcium 9.3 mg/dL (8.5-10.5); Carbon Dioxide 25 mmol/L (22-29); Chloride 98 mmol/L (98-107); Creatinine Clr Calc Pharmacy 78.7488; Globulin 2.3 g/dL (1.3-4.6); Glomerular Filtration Rate 84.7 mL/min (90-130); Glucose 121 mg/dL (65-115); NT Pro B Type Natriuretic Pept 177 pg/mL (0-125); Osmolality Calculated 286 mOsm/kg (285-295); Potassium 4.9 mmol/L (3.5-5.1); Sodium 136 mmol/L (136-145); Total Bilirubin 0.6 mg/dL (0.15-1.2); Total Protein 6.8 g/dL (6.6-8.7)
[2024-05-21] MEDS: AZITHROMYCIN ADD-Vantage 500 MG in 0.9% NaCl ADD-Vantage 250 ML 250 MG IV (11:18)
[2024-05-21] MEDS: cefTRIAXone 1,000 mg SDV 1000 MG IVP (11:18)
--- NOTE | 2024-05-21 12:38 | ECG_ITS ---
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 Measurements Intervals [place] Rate: 97 P: 83 GA: 164 QRS: 81 QRSD: 90 T: 72 QT: 330 QTc: 420 Interpretive Statements SINUS RHYTHM Compared to ECG 05/21/2024 10:12:32 Sinus tachycardia no longer present Ventricular premature complex(es) no longer present T-wave abnormality no longer present Electronically Signed On 05-21-2024 12:13:11 CDT by Alex Gambino M.D. [email or web address]
[2024-05-21 13:12] LABS: Troponin 5 2HR 10.32 ng/L (0-15); Troponin 5 2HR Delta 0.32 ABS# (0-10)
[2024-05-21] MEDS: methylPREDNISolone sod succ 125 mg/2 mL INJ IVP (14:28)
[2024-05-21] MEDS: enoxaparin 40 mg/0.4 mL Syringe SUBCUT (14:28)
--- NOTE | 2024-05-21 14:37 | P.HP_ITS ---
Providers/Chief Complaint 2 Admitting Physician: Audie Luke MD Primary Care Provider: Santiago Cochran MD Chief Complaint: SOB History of Present Illness Barry Phelan is a 63 year old male Review of Systems 2 Const: Reports: fever(s), chills, fatigue and malaise Eyes: Denies: change in vision Card: Denies: chest pain Resp: Reports: dyspnea and productive cough GI: Denies: abdominal pain Neuro: Denies: headache(s) Medications/Allergies Home Medications Medication Instructions Recorded Confirmed Last Taken Type levalbuterol tartrate 45 2 inh inhalation Q6H PRN SOB or 01/16/24 05/21/24 05/21/24 04:30 Rx mcg/actuation aerosol inhaler Wheezing #15 grams (Xopenex HFA) budesonide 160 mcg-glycopyr 9 See Rx Instructions .Route 02/03/24 05/21/24 05/20/24 Rx mcg-formot 4.8 mcg/actuation HFA .COMPLEX #10.7 grams inhaler (Breztri Aerosphere) ipratropium 0.5 mg-albuterol 3 mg 3 ml inhalation Q4H PRN wheezing 04/24/24 05/21/24 05/20/24 Rx (2.5 mg base)/3 mL nebulization #90 mL soln trazodone 50 mg tablet 50 mg PO DAILY #30 tabs 04/24/24 05/21/24 05/20/24 Rx doxycycline hyclate 100 mg tablet 100 mg PO BID 7 days #14 tabs 05/19/24 05/21/24 05/20/24 Rx prednisone 50 mg tablet 50 mg PO DAILY #5 tabs 05/19/24 05/21/24 05/20/24 Rx Allergies Allergy/AdvReac Type Severity Reaction Status Date / Time No Known Allergies Allergy Verified 05/21/24 10:18 PFSH Acute 2 PFSH: Medical History Tobacco use disorder, severe, in sustained remission Alcohol use disorder, severe, dependence Chronic obstructive pulmonary disease History of COVID-19 Surgical History (Updated 05/21/24 @ 14:38 by Audie Luke MD) No pertinent past surgical history Family History Other Clotting disorder Lung disease Denies family history of Diabetes CAD (coronary artery disease) Dementia Hyperlipidemia Psychiatric illness Chronic kidney disease (CKD) Anesthesia complication Bleeding disorder Cancer Hypertension Stroke Social History Smoking and tobacco/nicotine status: former use of tobacco/nicotine (does not smoke tobacco anymore) Quit status (tobacco/nicotine): has quit using Year quit tobacco: 2005 Alcohol intake: former Year of sobriety/quit date alcohol: 2005 Substance/Drug Use: current Substance/Drug use frequency: daily Other substance/drug use details: 1 joint a day Lives independently: Yes Marital status: Number of children: 4 Current occupational status: disabled Special airam needs: No Agree to transfusion: Yes Vitals/I&O/Wt Last Vital Signs Temp 98.3 F 05/21/24 13:46 Pulse 96 05/21/24 13:46 Resp 18 05/21/24 13:46 BP 124/80 05/21/24 13:46 Pulse Ox 96 05/21/24 13:46 O2 Del Method Nasal Cannula 05/21/24 13:46 O2 Flow Rate 2 05/21/24 10:34 05/20/24 05/21/24 05/21/24 22:59 06:59 14:59 Intake Total 250 / 250 Balance 250 / 250 Weight last 48 hrs Weight 67.302 kg Weight 68.039 kg Physical Exam 2 Const: COMMON NORMALS: no acute distress and patient oriented x3 OTHER: Evidence of moderate protein calorie malnutrition, fat pad thinning and under bilateral ribs, bilateral clavicles Eye: COMMON NORMALS: Equal, round and reactive pupils present and EOMs intact bilaterally Resp: OTHER: On examination, patient has diminished lung sounds in all lung quadrants, does have minimal suprasternal retractions intercostal retractions, nasal flaring, tachypnea, no tachycardia Cardio: COMMON NORMALS: regular rate, regular rhythm, S1 normal heart sound present and S2 normal heart sound present RATE: regular rate RHYTHM: r egular rhythm HEART SOUNDS: S1 normal heart sound present and S2 normal heart sound present GI: COMMON NORMALS: Normal to inspection, nondistended, normoactive bowel sounds present, Soft to palpation and non-tender Extremity: COMMON NORMALS: no pedal edema Neuro: COMMON NORMALS: patient oriented x3, CN's II-XII intact bilaterally and moves all extremities Psych: COMMON NORMALS: mental status grossly normal Data 05/21/24 10:23 05/21/24 10:23 Micro: Microbiology 05/21/24 10:56 Blood Culture - Preliminary Blood SPECIMEN COLLECTED 05/21/24 10:59 Blood Culture - Preliminary Blood SPECIMEN COLLECTED A&P Assessment and plan (1) Right upper lobe pneumonia: (2) COPD exacerbation: (3) Protein calorie malnutrition: (4) Low BMI: (5) Muscle wasting: (6) Sepsis: Plan Acute hypoxic respiratory failure -Currently on 2 L, however patient does have diminished breath sounds in all lung [place], nasal flaring, tachypnea, suprasternal, intercostal retractions, mild respiratory distress 1. New subsolid consolidation consistent with pneumonia RIGHT upper lobe. Approximately 30% of the RIGHT upper lobe is involved with pneumonia. 2. Severe advanced emphysema. 3. LEFT hilar indeterminate lymph node. Probably reactive on the basis of the pneumonia. 4. No pulmonary embolism. ? Plan ? Continue Rocephin -Continue Zithromycin -125 mg of Solu-Medrol ? Solu-Medrol 40 mg IV every 8 hours starting in the morning ? Order ABG will consider BiPAP based on clinical progress ? DuoNeb ? Budesonide ? Monitor respiratory status closely ? Follow blood cultures -Sputum cultures ? Respiratory viral panel # Full code Lovenox for DVT prophylaxis Sepsis features met source of infection right upper lobe pneumonia, WBC 27,000, mild respiratory distress as above -Moderate physical deconditioning, moderate malnutrition, muscle wasting -Likely secondary to underlying severe COPD # Protein shakes twice daily -Consult dietary Attestations 2 Medical Necessity Statement*: Patient requires hospitalization, inpatient, greater than 2 midnights, for COPD exacerbation, pneumonia, Diagnoses Right upper lobe pneumonia J18.9 COPD exacerbation J44.1 Protein calorie malnutrition E46 Low BMI Muscle wasting M62.50 Sepsis A41.9
[2024-05-21 14:51] LABS: Chol HDL Ratio 2.09 mg/dL (1.0-5.00); Cholesterol 178 mg/dL (0-200); HDL Cholesterol 85 mg/dL (60-100); LDL Cholesterol Calculated 69 mg/dL (50-129); LDL HDL Ratio 0.81 RATIO (0.00-3.22); Thyroid Stimulating Hormone 2.79 uIU/mL (0.27-4.20); Triglycerides 120 mg/dL (0-150)
[2024-05-21 15:08] LABS: Lactic Sepsis W/Reflex 2.5 mmol/L (0.5-2.2)
--- NOTE | 2024-05-21 15:14 | ECG_ITS ---
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 Measurements Intervals [place] Rate: 103 P: 83 IA: 163 QRS: 81 QRSD: 84 T: 69 QT: 311 QTc: 409 Interpretive Statements SINUS TACHYCARDIA RIGHT ATRIAL ENLARGEMENT [0.3mV P-WAVE] POSSIBLE LEFT ATRIAL ENLARGEMENT [-0.1mV P-WAVE IN V1/V2] Compared to ECG 05/21/2024 11:53:12 Atrial abnormality now present Electronically Signed On 05-21-2024 17:15:27 CDT by Alex Gambino M.D. [id number]
[2024-05-21 15:15] LABS: Estmated Average Glucose 117; Hemoglobin A1C 5.7 % (4.0-6.0)
[2024-05-21 15:24] LABS: C Reactive Protein 71.9 mg/L (0.0-4.9)
[2024-05-21 15:30] LABS: Procalcitonin 0.21 ng/mL (0-0.5)
[2024-05-21 15:47] LABS: Covid PCR NEGATIVE (Negative); Influenza A NEGATIVE (Negative); Influenza B NEGATIVE (Negative); Respiratory Syncytial Virus Ce NEGATIVE (Negative)
[2024-05-21 16:19] LABS: ABG PCO2 41.4 mmHg (35-45); ABG PH Result 7.43 (7.35-7.45); Arterial Blood Gas Hematocrit 42.1 % (42-52); Base Excess ABG 3.1 mmol/L (-2.0-2.0); Blood Gas Allen Test Pos; Blood Gas Operator Identificat BROMA; Blood Gas Sample Site Radial, right; Blood Gas Sample Type Arterial; HCO3 ABG 27.7 mmol/L (22-26); Oxygen Device NC; PO2 ABG 73.7 mmHg (80.0-100.0); PO2 FiO2 Ratio Arterial Blood 263
[2024-05-21] MEDS: ALPRAZolam 0.5 mg Tablet PO (16:25)
[2024-05-21 16:37] LABS: Reflex Lactate Order REFLEX LACTIC ORDERD
[2024-05-21 18:19] LABS: Troponin 5 6HR 9.61 ng/L (0-15)
[2024-05-21 18:21] LABS: Troponin 5 6HR Delta -0.39 ng/L (0-12)
[2024-05-21] MEDS: acetaminophen 325 mg Tablet 650 MG PO (19:36)
[2024-05-21] MEDS: budesonide 0.5 mg/2 mL Neb INHALATION (21:04)
[2024-05-22] VITALS (15 sets, daily range): BP systolic 115–139; BP diastolic 71–81; PULSE 84–105; RESP 16–18; TEMP 36.3–36.6; O2SAT 95–100
[2024-05-22] MEDS: ipratropium-albuterol 3 mL Neb INHALATION ×6 (00:22→19:50)
[2024-05-22] MEDS: methylPREDNISolone sod succ 40 mg/mL INJ IVP ×3 (05:32→21:31)
[2024-05-22 05:33] LABS: Basophils % 0.1 %; Hematocrit 42.3 % (37-53); Lymphocytes # 0.7 10^3/uL (0.8-4.8); Lymphocytes % 4.1 %; Mean Corpuscular HGB Conc 32.4 g/dL (30-55); Mean Corpuscular Hemoglobin 28.8 pg (27-33); Mean Corpuscular Volume 89.1 fl (82-101); Mean Platelet Volume 10.7 fL (7.4-10.4); Monocytes # 0.7 10^3/uL (0.2-0.9); Monocytes % 4.4 %; Neutrophils # 15.18 10^3/uL (1.8-7.7); Neutrophils % 90.4 %; Nucleated Red Blood Cells % 0 %; Platelet Count 298 10^3/cmm (157-399); Red Blood Count 4.75 10^6/uL (3.85-5.65); Red Cell Distribution Width 13.3 % (12.1-15.1); White Blood Count 16.78 10^3/uL (3.29-11.43)
[2024-05-22 05:54] LABS: Alanine Aminotransferase 14 U/L (0-41); Albumin Level 3.9 g/dL (3.5-5.2); Alkaline Phosphatase 82 U/L (40-130); Anion Gap 17.6 (5-19); Aspartate Amino Transferase 12 U/L (0-40); Blood Urea Nitrogen 20 mg/dL (8-23); Calcium 8.8 mg/dL (8.5-10.5); Carbon Dioxide 27 mmol/L (22-29); Chloride 101 mmol/L (98-107); Creatinine Clr Calc Pharmacy 87.2344; Globulin 2.9 g/dL (1.3-4.6); Glucose 152 mg/dL (65-115); Osmolality Calculated 298 mOsm/kg (285-295); Potassium 4.6 mmol/L (3.5-5.1); Sodium 141 mmol/L (136-145); Total Bilirubin 0.4 mg/dL (0.15-1.2); Total Protein 6.8 g/dL (6.6-8.7)
[2024-05-22 06:04] LABS: NT Pro B Type Natriuretic Pept 216 pg/mL (0-125)
[2024-05-22] MEDS: budesonide 0.5 mg/2 mL Neb INHALATION ×2 (07:48→19:50)
[2024-05-22] MEDS: cefTRIAXone 1,000 mg SDV 1000 MG IVP (08:28)
[2024-05-22] MEDS: AZITHROMYCIN ADD-Vantage 500 MG in 0.9% NaCl ADD-Vantage 250 ML 250 MG IV (08:28)
--- NOTE | 2024-05-22 10:09 | PC.SOCIAL ---
IMM Update pg 2 of IMM Updated and reviewed w/ patient. Copy provided and copy dated, initialed and placed in chart.
--- NOTE | 2024-05-22 12:50 | PC.CHAP ---
Pastoral Care Encounter/Spiritual Assessment Type of Contact [] Declined weather algorithm scientist visit [] Patient/Family/Request visit [] Outpatient visit [] Follow-up visit [] Physician referral [] Code/Alert [x] Routine visit [] Staff referral [] Actively dying [] Patient sleeping [] Family support [] [] Out of room [] Palliative care [] [] Receiving care in room [] Pre-surgical visit [] Trauma [] Long length of stay [] ICU visit [] Other: Relational/Emotional Strength [x] Patient feels connected with others/family/visitors/staff [] Distress [] Loneliness/isolation [] Abandonment Spirituality of Patient [] Person of Dolores [] Attends Baptism of their Dolores [] Believes in Prayer [] Reads Bible or Druze materials [x] There are Spiritual issues to be addressed [place] Program Coordinator Interventions [] Prayer [x] Active listening [x] Non-anxious presence [x] Spiritual/emotional support [] Crisis/trauma care [x] Spiritual counseling [] Bereavement support [] Provided bereavement packet [] Provided Bible/devotional materials [] Provided toy/stuffed animal, coloring book to patient or family member [] Provided Communion [] Anointing/[place] [] Salvation [] Completed spiritual assessment [] Other: Impact on Illness or Injury [] Angry [] Fearful [] Anxious [] Often cries [x] Exhaustion [x] Unable to work [] Unable to attend islam [] Unable to walk/stand [] Unable to read [] Unable to drive [] Unable to eat/drink [] Unable to sleep [] Unable to be with family [] Patient intubated [] Other: Summary Raised in Worship, Lost belief in God do to all the conflict in the name of realign Time spent with patient 1 hr 15 min
[2024-05-22] MEDS: enoxaparin 40 mg/0.4 mL Syringe SUBCUT (13:33)
--- NOTE | 2024-05-22 14:23 | P.PN_ITS ---
Subjective 2 Subjective: Patient was seen this morning, his shortness of breath has improved to some degree, but does report shortness of breath with minimal exertion Vitals/I&O/Wt Last Vital Signs Temp 97.9 F 05/22/24 11:27 Pulse 105 H 05/22/24 11:59 Resp 18 05/22/24 11:59 BP 129/74 05/22/24 11:27 Pulse Ox 95 05/22/24 11:59 O2 Del Method Nasal Cannula 05/22/24 11:59 O2 Flow Rate 2 05/22/24 11:59 05/21/24 05/22/24 05/22/24 22:59 06:59 14:59 Intake Total 120 / 370 970 / 970 Output Total 450 / 450 350 / 800 300 / 300 Balance -330 / -80 -350 / -430 670 / 670 Weight last 48 hrs Weight 66.996 kg Weight 67.302 kg Weight 68.039 kg Physical Exam 2 Const: COMMON NORMALS: no acute distress and patient oriented x3 HENMT: COMMON NORMALS: normocephalic HEAD & SCALP: normocephalic Resp: COMMON NORMALS: normal respiratory effort, No retractions and No use of accessory muscles AUSCULTATION: wheezes Cardio: COMMON NORMALS: regular rate, regular rhythm, S1 normal heart sound present and S2 normal heart sound present RATE: regular rate RHYTHM: r egular rhythm HEART SOUNDS: S1 normal heart sound present and S2 normal heart sound present GI: COMMON NORMALS: Normal to inspection, nondistended, normoactive bowel sounds present, Soft to palpation and non-tender PALPATION: Yes Soft to palpation Extremity: COMMON NORMALS: no pedal edema Neuro: COMMON NORMALS: patient oriented x3 Psych: COMMON NORMALS: mental status grossly normal Data 05/22/24 04:53 05/22/24 04:53 Micro: Microbiology 05/21/24 10:59 Blood Culture - Preliminary Blood NEGATIVE TO DATE 05/21/24 10:56 Blood Culture - Preliminary Blood NEGATIVE TO DATE A&P Assessment and plan (1) Right upper lobe pneumonia: (2) COPD exacerbation: (3) Protein calorie malnutrition: (4) Low BMI: (5) Muscle wasting: (6) Sepsis: Plan Acute hypoxic respiratory failure ? Secondary to COPD exacerbation, pneumonia -Currently on 2 L, however patient does have diminished breath sounds in all lung [place], nasal flaring, tachypnea, suprasternal, intercostal retractions, mild respiratory distress 1. New subsolid consolidation consistent with pneumonia RIGHT upper lobe. Approximately 30% of the RIGHT upper lobe is involved with pneumonia. 2. Severe advanced emphysema. 3. LEFT hilar indeterminate lymph node. Probably reactive on the basis of the pneumonia. 4. No pulmonary embolism. ? Plan ? Continue Rocephin -Continue Zithromycin ? Solu-Medrol 40 mg IV every 8 hours starting in the morning ? will consider BiPAP based on clinical progress ? DuoNeb ? Budesonide ? Monitor respiratory status closely ? Follow blood cultures -Sputum cultures ? Respiratory viral panel within normal limits # Full code Lovenox for DVT prophylaxis Sepsis features met source of infection right upper lobe pneumonia, WBC 27,000, mild respiratory distress as above -Moderate physical deconditioning, moderate malnutrition, muscle wasting -Likely secondary to underlying severe COPD # Protein shakes twice daily -Consult dietary Attestations 2 Medical Necessity Statement*: Patient requires hospitalization for acute hypoxic respiratory failure secondary to COPD, pneumonia Diagnoses Right upper lobe pneumonia J18.9 COPD exacerbation J44.1 Protein calorie malnutrition E46 Low BMI Muscle wasting M62.50 Sepsis A41.9
[2024-05-22] MEDS: ALPRAZolam 0.5 mg Tablet PO (16:55)
[2024-05-23] VITALS (17 sets, daily range): BP systolic 120–145; BP diastolic 71–79; PULSE 64–98; RESP 15–19; TEMP 36.4–36.9; O2SAT 92–99
[2024-05-23] MEDS: ipratropium-albuterol 3 mL Neb INHALATION ×6 (00:34→20:25)
[2024-05-23 04:47] LABS: Basophils % 0.1 %; Hematocrit 37.6 % (37-53); Lymphocytes # 0.4 10^3/uL (0.8-4.8); Mean Corpuscular HGB Conc 31.9 g/dL (30-55); Mean Corpuscular Hemoglobin 28.6 pg (27-33); Mean Corpuscular Volume 89.7 fl (82-101); Mean Platelet Volume 10.7 fL (7.4-10.4); Monocytes # 0.6 10^3/uL (0.2-0.9); Monocytes % 4.1 %; Neutrophils # 13.64 10^3/uL (1.8-7.7); Neutrophils % 92.1 %; Nucleated Red Blood Cells % 0 %; Platelet Count 300 10^3/cmm (157-399); Red Blood Count 4.19 10^6/uL (3.85-5.65); Red Cell Distribution Width 13.6 % (12.1-15.1); White Blood Count 14.81 10^3/uL (3.29-11.43)
[2024-05-23 05:32] LABS: Alanine Aminotransferase 14 U/L (0-41); Albumin Level 3.5 g/dL (3.5-5.2); Alkaline Phosphatase 68 U/L (40-130); Anion Gap 11.6 (5-19); Aspartate Amino Transferase 9 U/L (0-40); Blood Urea Nitrogen 22 mg/dL (8-23); Calcium 8.8 mg/dL (8.5-10.5); Carbon Dioxide 30 mmol/L (22-29); Chloride 102 mmol/L (98-107); Creatinine Clr Calc Pharmacy 95.6211; Globulin 1.8 g/dL (1.3-4.6); Glomerular Filtration Rate 113.2 mL/min (90-130); Glucose 147 mg/dL (65-115); NT Pro B Type Natriuretic Pept 124 pg/mL (0-125); Osmolality Calculated 294 mOsm/kg (285-295); Potassium 4.6 mmol/L (3.5-5.1); Sodium 139 mmol/L (136-145); Total Bilirubin 0.2 mg/dL (0.15-1.2); Total Protein 5.3 g/dL (6.6-8.7)
[2024-05-23] MEDS: methylPREDNISolone sod succ 40 mg/mL INJ IVP ×3 (05:55→21:42)
[2024-05-23] MEDS: budesonide 0.5 mg/2 mL Neb INHALATION ×2 (08:31→20:25)
[2024-05-23] MEDS: AZITHROMYCIN ADD-Vantage 500 MG in 0.9% NaCl ADD-Vantage 250 ML 250 MG IV (09:17)
[2024-05-23] MEDS: cefTRIAXone 1,000 mg SDV 1000 MG IVP (09:18)
[2024-05-23] MEDS: enoxaparin 40 mg/0.4 mL Syringe SUBCUT (13:53)
--- NOTE | 2024-05-23 14:01 | P.PN_ITS ---
Subjective 2 Subjective: Patient was seen this morning, he tells me that his breathing has improved, no fevers, no chills Vitals/I&O/Wt Last Vital Signs Temp 97.8 F 05/23/24 11:49 Pulse 75 05/23/24 11:49 Resp 16 05/23/24 11:49 BP 133/79 05/23/24 11:49 Pulse Ox 93 05/23/24 11:49 O2 Del Method Nasal Cannula 05/23/24 11:49 O2 Flow Rate 2 05/23/24 11:22 05/22/24 05/23/24 05/23/24 22:59 06:59 14:59 Intake Total 400 / 1370 500 / 1870 850 / 850 Output Total 200 / 500 275 / 775 175 / 175 Balance 200 / 870 225 / 1095 675 / 675 Weight last 48 hrs Weight 73.437 kg Weight 66.996 kg Physical Exam 2 Const: COMMON NORMALS: no acute distress and patient oriented x3 Resp: COMMON NORMALS: normal respiratory effort, No retractions and No use of accessory muscles AUSCULTATION: wheezes Cardio: COMMON NORMALS: regular rate, regular rhythm, S1 normal heart sound present and S2 normal heart sound present RATE: regular rate RHYTHM: r egular rhythm HEART SOUNDS: S1 normal heart sound present and S2 normal heart sound present GI: COMMON NORMALS: Normal to inspection, nondistended, normoactive bowel sounds present and non-tender Extremity: COMMON NORMALS: no pedal edema Neuro: COMMON NORMALS: patient oriented x3 Psych: COMMON NORMALS: mental status grossly normal Data 05/23/24 03:39 05/23/24 03:39 Micro: Microbiology 05/21/24 16:10 Gram Stain - Final Sputum - Expectorated Sputum Sputum Culture - Final Pseudomonas aeruginosa 05/21/24 10:59 Blood Culture - Preliminary Blood NEGATIVE TO DATE 05/21/24 10:56 Blood Culture - Preliminary Blood NEGATIVE TO DATE A&P Assessment and plan (1) Right upper lobe pneumonia: (2) COPD exacerbation: (3) Protein calorie malnutrition: (4) Low BMI: (5) Muscle wasting: (6) Sepsis: (7) Pseudomonas pneumonia: Plan Acute hypoxic respiratory failure ? Secondary to COPD exacerbation, pneumonia -Currently on 2 L 1. New subsolid consolidation consistent with pneumonia RIGHT upper lobe. Approximately 30% of the RIGHT upper lobe is involved with pneumonia. 2. Severe advanced emphysema. 3. LEFT hilar indeterminate lymph node. Probably reactive on the basis of the pneumonia. 4. No pulmonary embolism. -Sputum cultures growing Pseudomonas ? Plan ? Given sputum cultures as above growing Pseudomonas broaden antibiotic coverage to cefepime 2 g IV every 12 hours ? Solu-Medrol 40 mg IV every 8 hours starting in the morning ? will consider BiPAP based on clinical progress ? DuoNeb ? Budesonide ? Monitor respiratory status closely ? Follow blood cultures -Sputum cultures ? Respiratory viral panel within normal limits # Full code Lovenox for DVT prophylaxis Sepsis features met source of infection right upper lobe pneumonia, WBC 27,000, mild respiratory distress as above -Moderate physical deconditioning, moderate malnutrition, muscle wasting -Likely secondary to underlying severe COPD # Protein shakes twice daily -Consult dietary Attestations 2 Medical Necessity Statement*: Patient requires hospitalization for Pseudomonas pneumonia, COPD exacerbation Diagnoses Right upper lobe pneumonia J18.9 COPD exacerbation J44.1 Protein calorie malnutrition E46 Low BMI Muscle wasting M62.50 Sepsis A41.9 Pseudomonas pneumonia J15.1
[2024-05-23] MEDS: ALPRAZolam 0.5 mg Tablet PO (17:17)
[2024-05-23] MEDS: cefepime 2,000 MG in sodium chloride 0.9% (plus) 50 ML 100 MG IV (17:17)
[2024-05-24] VITALS (18 sets, daily range): BP systolic 133–155; BP diastolic 70–85; PULSE 77–101; RESP 15–18; TEMP 36.4–36.8; O2SAT 94–97
[2024-05-24] MEDS: ipratropium-albuterol 3 mL Neb INHALATION ×7 (00:14→23:36)
[2024-05-24 05:38] LABS: Basophils % 0.2 %; Hematocrit 41.9 % (37-53); Lymphocytes # 0.6 10^3/uL (0.8-4.8); Lymphocytes % 3.4 %; Mean Corpuscular HGB Conc 32.2 g/dL (30-55); Mean Corpuscular Hemoglobin 28.9 pg (27-33); Mean Corpuscular Volume 89.7 fl (82-101); Mean Platelet Volume 10.2 fL (7.4-10.4); Monocytes % 5.3 %; Neutrophils # 16.98 10^3/uL (1.8-7.7); Neutrophils % 90.3 %; Nucleated Red Blood Cells % 0 %; Platelet Count 356 10^3/cmm (157-399); Red Blood Count 4.67 10^6/uL (3.85-5.65); Red Cell Distribution Width 13.6 % (12.1-15.1)
[2024-05-24 05:58] LABS: Alanine Aminotransferase 24 U/L (0-41); Alkaline Phosphatase 85 U/L (40-130); Anion Gap 15.6 (5-19); Aspartate Amino Transferase 14 U/L (0-40); Blood Urea Nitrogen 21 mg/dL (8-23); Calcium 9.2 mg/dL (8.5-10.5); Carbon Dioxide 30 mmol/L (22-29); Chloride 98 mmol/L (98-107); Creatinine Clr Calc Pharmacy 108.3776; Globulin 2.7 g/dL (1.3-4.6); Glomerular Filtration Rate 113.2 mL/min (90-130); Glucose 138 mg/dL (65-115); Osmolality Calculated 293 mOsm/kg (285-295); Potassium 4.6 mmol/L (3.5-5.1); Sodium 139 mmol/L (136-145); Total Bilirubin 0.3 mg/dL (0.15-1.2); Total Protein 6.7 g/dL (6.6-8.7)
[2024-05-24 06:06] LABS: NT Pro B Type Natriuretic Pept 182 pg/mL (0-125)
[2024-05-24] MEDS: methylPREDNISolone sod succ 40 mg/mL INJ IVP (06:22)
[2024-05-24] MEDS: cefepime 2,000 MG in sodium chloride 0.9% (plus) 50 ML 100 MG IV ×2 (06:22→17:10)
[2024-05-24] MEDS: budesonide 0.5 mg/2 mL Neb INHALATION ×2 (08:33→20:04)
[2024-05-24] MEDS: enoxaparin 40 mg/0.4 mL Syringe SUBCUT (14:27)
--- NOTE | 2024-05-24 15:01 | P.PN_ITS ---
Subjective 2 Subjective: Patient was seen this morning, he feels better, he sitting up to the side of the bed, still having some shortness of breath with exertion Vitals/I&O/Wt Last Vital Signs Temp 97.6 F 05/24/24 11:48 Pulse 82 05/24/24 11:48 Resp 15 05/24/24 11:48 BP 135/71 05/24/24 11:48 Pulse Ox 95 05/24/24 11:48 O2 Del Method Nasal Cannula 05/24/24 11:48 O2 Flow Rate 2 05/24/24 11:08 05/24/24 05/24/24 05/24/24 06:59 14:59 22:59 Intake Total 480 / 480 Output Total 300 / 300 Balance 180 / 180 Weight last 48 hrs Weight 74.435 kg Weight 73.437 kg Physical Exam 2 Const: COMMON NORMALS: no acute distress and patient oriented x3 Resp: COMMON NORMALS: normal respiratory effort, No retractions, No use of accessory muscles and clear to auscultation bilaterally AUSCULTATION: clear to auscultation bilaterally Cardio: COMMON NORMALS: regular rate, regular rhythm, S1 normal heart sound present and S2 normal heart sound present RATE: regular rate RHYTHM: r egular rhythm HEART SOUNDS: S1 normal heart sound present and S2 normal heart sound present GI: COMMON NORMALS: Normal to inspection, nondistended, normoactive bowel sounds present and non-tender Extremity: COMMON NORMALS: no pedal edema Neuro: COMMON NORMALS: patient oriented x3 Psych: COMMON NORMALS: mental status grossly normal Data 05/24/24 04:44 05/24/24 04:44 Micro: Microbiology 05/21/24 16:10 Gram Stain - Final Sputum - Expectorated Sputum Sputum Culture - Final Pseudomonas aeruginosa A&P Assessment and plan (1) Right upper lobe pneumonia: (2) COPD exacerbation: (3) Protein calorie malnutrition: (4) Low BMI: (5) Muscle wasting: (6) Sepsis: (7) Pseudomonas pneumonia: Plan Acute hypoxic respiratory failure ? Secondary to COPD exacerbation, pneumonia -Currently on 2 L 1. New subsolid consolidation consistent with pneumonia RIGHT upper lobe. Approximately 30% of the RIGHT upper lobe is involved with pneumonia. 2. Severe advanced emphysema. 3. LEFT hilar indeterminate lymph node. Probably reactive on the basis of the pneumonia. 4. No pulmonary embolism. -Sputum cultures growing Pseudomonas ? Plan ? Given sputum cultures as above growing Pseudomonas broaden antibiotic coverage to cefepime 2 g IV every 12 hours ? De-escalate to prednisone 40 mg daily ? will consider BiPAP based on clinical progress ? DuoNeb ? Budesonide ? Monitor respiratory status closely ? Follow blood cultures -Sputum cultures ? Respiratory viral panel within normal limits # Full code Lovenox for DVT prophylaxis Sepsis features met source of infection right upper lobe pneumonia, WBC 27,000, mild respiratory distress as above -Moderate physical deconditioning, moderate malnutrition, muscle wasting -Likely secondary to underlying severe COPD # Protein shakes twice daily -Consult dietary Attestations 2 Medical Necessity Statement*: Patient requires hospitalization for acute respiratory failure secondary to Pseudomonas pneumonia , requiring IV antibiotics, cefepime Diagnoses Right upper lobe pneumonia J18.9 COPD exacerbation J44.1 Protein calorie malnutrition E46 Low BMI Muscle wasting M62.50 Sepsis A41.9 Pseudomonas pneumonia J15.1
[2024-05-24] MEDS: ALPRAZolam 0.5 mg Tablet PO (17:10)
[2024-05-25] VITALS (12 sets, daily range): BP systolic 117–140; BP diastolic 71–81; PULSE 61–101; RESP 16–19; TEMP 36.6–36.8; O2SAT 91–98
[2024-05-25] MEDS: ipratropium-albuterol 3 mL Neb INHALATION ×5 (03:08→20:59)
[2024-05-25] MEDS: acetaminophen 325 mg Tablet 650 MG PO ×2 (03:46→10:24)
[2024-05-25 04:37] LABS: Basophils % 0.2 %; Eosinophils % 0.1 %; Hematocrit 42.8 % (37-53); Lymphocytes # 1.6 10^3/uL (0.8-4.8); Lymphocytes % 8.7 %; Mean Corpuscular Hemoglobin 29.1 pg (27-33); Mean Corpuscular Volume 90.9 fl (82-101); Mean Platelet Volume 10.2 fL (7.4-10.4); Monocytes % 10.5 %; Neutrophils # 14.95 10^3/uL (1.8-7.7); Neutrophils % 79.3 %; Nucleated Red Blood Cells % 0 %; Platelet Count 355 10^3/cmm (157-399); Red Blood Count 4.71 10^6/uL (3.85-5.65); Red Cell Distribution Width 13.5 % (12.1-15.1); White Blood Count 18.84 10^3/uL (3.29-11.43)
[2024-05-25 04:50] LABS: Anion Gap 12.5 (5-19); Blood Urea Nitrogen 21 mg/dL (8-23); Calcium 8.6 mg/dL (8.5-10.5); Carbon Dioxide 34 mmol/L (22-29); Chloride 98 mmol/L (98-107); Creatinine Clr Calc Pharmacy 86.4661; Glucose 93 mg/dL (65-115); Osmolality Calculated 293 mOsm/kg (285-295); Potassium 4.5 mmol/L (3.5-5.1); Sodium 140 mmol/L (136-145)
[2024-05-25] MEDS: cefepime 2,000 MG in sodium chloride 0.9% (plus) 50 ML 100 MG IV ×3 (05:43→21:26)
[2024-05-25] MEDS: predniSONE 20 mg Tablet 40 MG PO (07:46)
[2024-05-25] MEDS: budesonide 0.5 mg/2 mL Neb INHALATION ×2 (07:52→20:59)
--- NOTE | 2024-05-25 08:02 | XR_ITS ---
WS: [id number] XR chest 1V portable [id number] REASON FOR EXAM: sob FINDINGS: Compared to the examination of 05/21/2024, there are increased diffuse coarse opacities in the right upper lung with volume loss. Lungs are hyperexpanded with findings of central lobar emphysema. XR/XR chest 1V portable [id number] IMPRESSION: Progression of abnormality in the right upper lung seen on 05/21/2024.
[2024-05-25 09:01] LABS: C Reactive Protein 19.6 mg/L (0.0-4.9)
[2024-05-25 09:08] LABS: Procalcitonin 0.13 ng/mL (0-0.5)
--- NOTE | 2024-05-25 12:46 | P.PN_ITS ---
Subjective 2 Subjective: Patient was seen this morning, he does report weakness, fatigue, cough, shortness of breath, no lightheadedness, no dizziness, Vitals/I&O/Wt Last Vital Signs Temp 97.8 F 05/25/24 11:35 Pulse 99 05/25/24 11:35 Resp 19 H 05/25/24 11:35 BP 133/80 05/25/24 11:35 Pulse Ox 91 05/25/24 11:35 O2 Del Method Nasal Cannula 05/25/24 11:35 O2 Flow Rate 1 05/25/24 11:00 05/24/24 05/25/24 05/25/24 22:59 06:59 14:59 Intake Total 290 / 770 50 / 820 360 / 360 Output Total 1140 / 1440 475 / 1915 800 / 800 Balance -850 / -670 -425 / -1095 -440 / -440 Weight last 48 hrs Weight 66.406 kg Weight 74.435 kg Physical Exam 2 Const: COMMON NORMALS: no acute distress and patient oriented x3 Resp: COMMON NORMALS: normal respiratory effort, No retractions and No use of accessory muscles AUSCULTATION: wheezes Cardio: COMMON NORMALS: regular rate, regular rhythm, S1 normal heart sound present and S2 normal heart sound present RATE: regular rate RHYTHM: r egular rhythm HEART SOUNDS: S1 normal heart sound present and S2 normal heart sound present GI: COMMON NORMALS: Normal to inspection, nondistended, normoactive bowel sounds present and non-tender Extremity: COMMON NORMALS: no pedal edema Neuro: COMMON NORMALS: patient oriented x3 Psych: COMMON NORMALS: mental status grossly normal Data 05/25/24 03:25 05/25/24 03:25 A&P Assessment and plan (1) Right upper lobe pneumonia: (2) COPD exacerbation: (3) Protein calorie malnutrition: (4) Low BMI: (5) Muscle wasting: (6) Sepsis: (7) Pseudomonas pneumonia: Plan Acute hypoxic respiratory failure ? Secondary to COPD exacerbation, pneumonia -Currently on 2 L 1. New subsolid consolidation consistent with pneumonia RIGHT upper lobe. Approximately 30% of the RIGHT upper lobe is involved with pneumonia. 2. Severe advanced emphysema. 3. LEFT hilar indeterminate lymph node. Probably reactive on the basis of the pneumonia. 4. No pulmonary embolism. -Sputum cultures growing Pseudomonas ? Plan ? Given sputum cultures as above growing Pseudomonas broaden antibiotic coverage to cefepime 2 g IV every 12 hours ? De-escalate to prednisone 40 mg daily ? will consider BiPAP based on clinical progress ? DuoNeb ? Budesonide ? Monitor respiratory status closely ? Follow blood cultures -Sputum cultures ? Respiratory viral panel within normal limits # Full code Lovenox for DVT prophylaxis Sepsis features met source of infection right upper lobe pneumonia, WBC 27,000, mild respiratory distress as above -Moderate physical deconditioning, moderate malnutrition, muscle wasting -Likely secondary to underlying severe COPD # Protein shakes twice daily -Consult dietary Patient continues to have wheezing, shortness of breath, white blood cell count 18,000, culture showing Pseudomonas, chest x-ray showing enhancing right upper lobe pneumonia, CRP 19.6, Pro-Tommy 0.13, plan on continue IV antibiotics, increase cefepime to 2 g IV every 8 hours, monitor clinical progress Attestations 2 Medical Necessity Statement*: Patient requires hospitalization for Pseudomonas pneumonia, with COPD Diagnoses Right upper lobe pneumonia J18.9 COPD exacerbation J44.1 Protein calorie malnutrition E46 Low BMI Muscle wasting M62.50 Sepsis A41.9 Pseudomonas pneumonia J15.1
[2024-05-25] MEDS: enoxaparin 40 mg/0.4 mL Syringe SUBCUT (13:51)
[2024-05-26] VITALS (17 sets, daily range): BP systolic 110–139; BP diastolic 57–81; PULSE 84–108; RESP 14–20; TEMP 36.5–36.7; O2SAT 91–98
[2024-05-26] MEDS: ipratropium-albuterol 3 mL Neb INHALATION ×6 (00:51→19:48)
[2024-05-26] MEDS: cefepime 2,000 MG in sodium chloride 0.9% (plus) 50 ML 100 MG IV ×3 (05:42→21:21)
[2024-05-26 06:01] LABS: Basophils # 0.1 10^3/uL (0.0-0.1); Basophils % 0.5 %; Eosinophils # 0.1 10^3/uL (0.0-0.8); Eosinophils % 0.4 %; Lymphocytes # 2.2 10^3/uL (0.8-4.8); Lymphocytes % 13.2 %; Mean Corpuscular HGB Conc 32.6 g/dL (30-55); Mean Corpuscular Hemoglobin 29.7 pg (27-33); Mean Corpuscular Volume 90.9 fl (82-101); Monocytes # 1.7 10^3/uL (0.2-0.9); Neutrophils # 12.15 10^3/uL (1.8-7.7); Neutrophils % 72.1 %; Nucleated Red Blood Cells % 0 %; Platelet Count 331 10^3/cmm (157-399); Red Blood Count 4.62 10^6/uL (3.85-5.65); Red Cell Distribution Width 13.5 % (12.1-15.1); White Blood Count 16.85 10^3/uL (3.29-11.43)
[2024-05-26 06:20] LABS: Blood Urea Nitrogen 19 mg/dL (8-23); Calcium 8.9 mg/dL (8.5-10.5); Carbon Dioxide 35 mmol/L (22-29); Chloride 97 mmol/L (98-107); Creatinine Clr Calc Pharmacy 81.6823; Glucose 90 mg/dL (65-115); Osmolality Calculated 288 mOsm/kg (285-295); Sodium 138 mmol/L (136-145)
[2024-05-26 06:28] LABS: Anion Gap 9.9 (5-19); Potassium 3.9 mmol/L (3.5-5.1)
[2024-05-26] MEDS: budesonide 0.5 mg/2 mL Neb INHALATION ×2 (07:54→19:48)
[2024-05-26] MEDS: predniSONE 20 mg Tablet 40 MG PO (08:29)
[2024-05-26] MEDS: enoxaparin 40 mg/0.4 mL Syringe SUBCUT (13:49)
--- NOTE | 2024-05-26 14:21 | P.PN_ITS ---
Subjective 2 Subjective: Patient was seen this morning, he does tell me that when he gets up and exerts himself, he does feel more winded today, Vitals/I&O/Wt Last Vital Signs Temp 98.1 F 05/26/24 11:23 Pulse 108 H 05/26/24 11:33 Resp 18 05/26/24 11:33 BP 136/81 05/26/24 11:23 Pulse Ox 91 05/26/24 11:33 O2 Del Method Nasal Cannula 05/26/24 11:33 O2 Flow Rate 1 05/26/24 11:33 05/25/24 05/26/24 05/26/24 22:59 06:59 14:59 Intake Total 1080 / 1970 754 / 754 Output Total 925 / 2675 450 / 3125 Balance 155 / -705 -450 / -1155 754 / 754 Weight last 48 hrs Weight 62.732 kg Weight 66.406 kg Physical Exam 2 Const: COMMON NORMALS: no acute distress and patient oriented x3 Neck/C-Spine: COMMON NORMALS: no JVD Resp: COMMON NORMALS: normal respiratory effort, No retractions and No use of accessory muscles AUSCULTATION: wheezes Cardio: COMMON NORMALS: no JVD, regular rate, regular rhythm, S1 normal heart sound present and S2 normal heart sound present RATE: regular rate RHYTHM: regular rhythm HEART SOUNDS: S1 normal heart sound present and S2 normal heart sound present GI: COMMON NORMALS: Normal to inspection, nondistended, normoactive bowel sounds present and non-tender Extremity: COMMON NORMALS: no pedal edema Neuro: COMMON NORMALS: patient oriented x3 Psych: COMMON NORMALS: mental status grossly normal Data 05/26/24 04:17 05/26/24 04:17 Micro: Microbiology 05/21/24 10:59 Blood Culture - Final Blood NO GROWTH AFTER 5 DAYS 05/21/24 10:56 Blood Culture - Final Blood NO GROWTH AFTER 5 DAYS A&P Assessment and plan (1) Right upper lobe pneumonia: (2) COPD exacerbation: (3) Protein calorie malnutrition: (4) Low BMI: (5) Muscle wasting: (6) Sepsis: (7) Pseudomonas pneumonia: Plan Acute hypoxic respiratory failure ? Secondary to COPD exacerbation, pneumonia -Currently on 2 L 1. New subsolid consolidation consistent with pneumonia RIGHT upper lobe. Approximately 30% of the RIGHT upper lobe is involved with pneumonia. 2. Severe advanced emphysema. 3. LEFT hilar indeterminate lymph node. Probably reactive on the basis of the pneumonia. 4. No pulmonary embolism. -Sputum cultures growing Pseudomonas ? Plan ? Given sputum cultures as above growing Pseudomonas broaden antibiotic coverage to cefepime 2 g IV every 8 hours ? prednisone 40 mg daily ? will consider BiPAP based on clinical progress ? DuoNeb ? Budesonide ? Monitor respiratory status closely ? Follow blood cultures -Sputum cultures ? Respiratory viral panel within normal limits # Full code Lovenox for DVT prophylaxis Sepsis features met source of infection right upper lobe pneumonia, WBC 27,000, mild respiratory distress as above -Moderate physical deconditioning, moderate malnutrition, muscle wasting -Likely secondary to underlying severe COPD # Protein shakes twice daily -Consult dietary Plan for today continue IV antibiotics, continue steroid Attestations 2 Medical Necessity Statement*: Patient requires hospitalization for Pseudomonas pneumonia, with COPD Diagnoses Right upper lobe pneumonia J18.9 COPD exacerbation J44.1 Protein calorie malnutrition E46 Low BMI Muscle wasting M62.50 Sepsis A41.9 Pseudomonas pneumonia J15.1
[2024-05-26] MEDS: ALPRAZolam 0.5 mg Tablet PO (20:02)
[2024-05-27] VITALS (18 sets, daily range): BP systolic 110–127; BP diastolic 71–81; PULSE 68–94; RESP 16–20; TEMP 36.4–36.8; O2SAT 92–98
[2024-05-27] MEDS: ipratropium-albuterol 3 mL Neb INHALATION ×7 (04:02→23:38)
[2024-05-27 05:28] LABS: Hematocrit 38.8 % (37-53); Mean Corpuscular HGB Conc 31.7 g/dL (30-55); Mean Corpuscular Hemoglobin 28.5 pg (27-33); Mean Corpuscular Volume 89.8 fl (82-101); Mean Platelet Volume 9.9 fL (7.4-10.4); Platelet Count 390 10^3/cmm (157-399); Red Blood Count 4.32 10^6/uL (3.85-5.65); Red Cell Distribution Width 13.2 % (12.1-15.1)
[2024-05-27 05:49] LABS: Anion Gap 9.1 (5-19); Blood Urea Nitrogen 22 mg/dL (8-23); Calcium 8.4 mg/dL (8.5-10.5); Carbon Dioxide 34 mmol/L (22-29); Chloride 99 mmol/L (98-107); Creatinine Clr Calc Pharmacy 87.7656; Glomerular Filtration Rate 113.2 mL/min (90-130); Glucose 115 mg/dL (65-115); Osmolality Calculated 290 mOsm/kg (285-295); Potassium 4.1 mmol/L (3.5-5.1); Sodium 138 mmol/L (136-145)
[2024-05-27 06:00] LABS: Slide Review Slide Review Perform
[2024-05-27 06:01] LABS: Absolute Segmented Neutrophil 9.7 10/cmm (1.6-7.1); Eosinophils 0 %; Lymphocytes 14 %; Monocytes Absolute 1.3 10^3/cmm (0.1-0.6); Platelet Estimate Normal (Normal); Segmented Neutrophils 69 %; Total Cells Counted 100 (0-100)
[2024-05-27] MEDS: cefepime 2,000 MG in sodium chloride 0.9% (plus) 50 ML 100 MG IV (06:19)
[2024-05-27] MEDS: predniSONE 20 mg Tablet 40 MG PO (07:43)
[2024-05-27] MEDS: budesonide 0.5 mg/2 mL Neb INHALATION ×2 (08:25→20:12)
--- NOTE | 2024-05-27 10:06 | PC.SOCIAL ---
IMM Update pg 2 of IMM Updated and reviewed w/ patient. Copy provided and copy dated, initialed and placed in chart.
[2024-05-27] MEDS: enoxaparin 40 mg/0.4 mL Syringe SUBCUT (13:31)
--- NOTE | 2024-05-27 15:55 | P.PN_ITS ---
Subjective 2 Subjective: Patient was seen this morning, denies any chest pain, no palpitations does report shortness of breath, does have a cough, he still does not feel well he tells me Vitals/I&O/Wt Last Vital Signs Temp 98 F 05/27/24 15:46 Pulse 86 05/27/24 15:46 Resp 18 05/27/24 15:46 BP 110/72 05/27/24 15:46 Pulse Ox 95 05/27/24 15:46 O2 Del Method Room Air 05/27/24 15:46 O2 Flow Rate 1 05/27/24 08:00 05/27/24 05/27/24 05/27/24 06:59 14:59 22:59 Intake Total 50 / 1144 600 / 600 Output Total 300 / 1000 1100 / 1100 Balance -250 / 144 -500 / -500 Weight last 48 hrs Weight 67.404 kg Weight 62.732 kg Physical Exam 2 Const: COMMON NORMALS: no acute distress and patient oriented x3 Resp: COMMON NORMALS: normal respiratory effort, No retractions, No use of accessory muscles and clear to auscultation bilaterally AUSCULTATION: clear to auscultation bilaterally Cardio: COMMON NORMALS: regular rate, regular rhythm, S1 normal heart sound present and S2 normal heart sound present RATE: regular rate RHYTHM: r egular rhythm HEART SOUNDS: S1 normal heart sound present and S2 normal heart sound present GI: COMMON NORMALS: Normal to inspection, nondistended, normoactive bowel sounds present and non-tender Extremity: COMMON NORMALS: no pedal edema Neuro: COMMON NORMALS: patient oriented x3 Psych: COMMON NORMALS: mental status grossly normal Data 05/27/24 04:18 05/27/24 04:18 Micro: Microbiology 05/21/24 10:59 Blood Culture - Final Blood NO GROWTH AFTER 5 DAYS 05/21/24 10:56 Blood Culture - Final Blood NO GROWTH AFTER 5 DAYS A&P Assessment and plan (1) Right upper lobe pneumonia: (2) COPD exacerbation: (3) Protein calorie malnutrition: (4) Low BMI: (5) Muscle wasting: (6) Sepsis: (7) Pseudomonas pneumonia: Plan Acute hypoxic respiratory failure ? Secondary to COPD exacerbation, pneumonia -Currently on 2 L 1. New subsolid consolidation consistent with pneumonia RIGHT upper lobe. Approximately 30% of the RIGHT upper lobe is involved with pneumonia. 2. Severe advanced emphysema. 3. LEFT hilar indeterminate lymph node. Probably reactive on the basis of the pneumonia. 4. No pulmonary embolism. -Sputum cultures growing Pseudomonas ? Plan ? Given sputum cultures as above growing Pseudomonas broaden antibiotic coverage to cefepime 2 g IV every 8 hours ? prednisone 40 mg daily ? will consider BiPAP based on clinical progress ? DuoNeb ? Budesonide ? Monitor respiratory status closely ? Follow blood cultures -Sputum cultures ? Respiratory viral panel within normal limits # Full code Lovenox for DVT prophylaxis Sepsis features met source of infection right upper lobe pneumonia, WBC 27,000, mild respiratory distress as above -Moderate physical deconditioning, moderate malnutrition, muscle wasting -Likely secondary to underlying severe COPD # Protein shakes twice daily -Consult dietary Plan for today continue IV antibiotics, continue steroid Attestations 2 Medical Necessity Statement*: Patient requires hospitalization for COPD exacerbation, pneumonia Diagnoses Right upper lobe pneumonia J18.9 COPD exacerbation J44.1 Protein calorie malnutrition E46 Low BMI Muscle wasting M62.50 Sepsis A41.9 Pseudomonas pneumonia J15.1
[2024-05-27] MEDS: ALPRAZolam 0.5 mg Tablet PO (20:39)
[2024-05-28] VITALS (8 sets, daily range): BP systolic 126–144; BP diastolic 72–80; PULSE 75–94; RESP 16–18; TEMP 36.4–36.6; O2SAT 91–94
[2024-05-28] MEDS: ipratropium-albuterol 3 mL Neb INHALATION ×2 (03:35→08:11)
[2024-05-28 05:38] LABS: Basophils # 0.1 10^3/uL (0.0-0.1); Basophils % 0.6 %; Eosinophils # 0.1 10^3/uL (0.0-0.8); Hematocrit 37.9 % (37-53); Lymphocytes # 2.3 10^3/uL (0.8-4.8); Lymphocytes % 18.8 %; Mean Corpuscular HGB Conc 32.7 g/dL (30-55); Mean Corpuscular Hemoglobin 29.3 pg (27-33); Mean Corpuscular Volume 89.6 fl (82-101); Mean Platelet Volume 9.4 fL (7.4-10.4); Monocytes % 7.9 %; Neutrophils # 7.62 10^3/uL (1.8-7.7); Neutrophils % 61.7 %; Nucleated Red Blood Cells % 0 %; Platelet Count 443 10^3/cmm (157-399); Red Blood Count 4.23 10^6/uL (3.85-5.65); Red Cell Distribution Width 13.1 % (12.1-15.1); White Blood Count 12.35 10^3/uL (3.29-11.43)
[2024-05-28] MEDS: levoFLOXacin 750 mg Tablet PO (06:05)
[2024-05-28 06:31] LABS: Slide Review Slide Review Perform
[2024-05-28] MEDS: predniSONE 20 mg Tablet 40 MG PO (08:06)
--- NOTE | 2024-05-28 08:10 | PM.DCS ---
Discharge Providers Date of Admission: 05/21/24 12:50 Date of Discharge: May 28, 2024 Attending Provider at Admission: Audie Luke MD Attending Provider at Discharge: Audie Luke MD Primary Care Provider: Santiago Cochran MD Diagnoses at Discharge Discharge Diagnosis (1) Right upper lobe pneumonia: Status: Acute (2) COPD exacerbation: Status: Acute (3) Protein calorie malnutrition: Status: Resolved (4) Low BMI: Status: Resolved (5) Muscle wasting: Status: Resolved (6) Sepsis: Status: Acute (7) Pseudomonas pneumonia: Status: Acute Reason for Visit Reason for Visit: SOB Hospital Course Hospital Course This is a 63-year-old male with a past medical history of COPD, BMI 17, who presents [facility] for shortness of breath, cough Patient was admitted to [facility] for COPD exacerbation, Pseudomonas pneumonia, right upper lobe, requiring IV antibiotics, IV steroids, oxygen therapy. Patient was monitored, he had slow clinical progress but eventually improved to room air, minimal wheezing on discharge, no significant cough, ambulating without significant symptomatology. Will discharge on a prednisone burst, with Levaquin for antibiotic coverage, with close follow-up with primary care provider as outpatient. For his anxiety have discharged him on a small supply of Xanax 0.5 mg p.o. every 24 hours as needed. -? Please take antibiotics as prescribed ? Hydrate well ? Take steroids as prescribed ? Follow-up with primary care provider ? Please use Xanax sparingly for anxiety, do not drive or operate heavy machinery or drink alcohol while taking medication Physical Exam Const: COMMON NORMALS: no acute distress and patient oriented x3 Resp: COMMON NORMALS: normal respiratory effort, No retractions, No use of accessory muscles and clear to auscultation bilaterally AUSCULTATION: clear to auscultation bilaterally Cardio: COMMON NORMALS: regular rate, regular rhythm, S1 normal heart sound present and S2 normal heart sound present RATE: regular rate RHYTHM: regular rhythm HEART SOUNDS: S1 normal heart sound present and S2 normal heart sound present GI: COMMON NORMALS: Normal to inspection, nondistended, normoactive bowel sounds present and non-tender Extremity: COMMON NORMALS: no pedal edema Neuro: COMMON NORMALS: patient oriented x3 Psych: COMMON NORMALS: mental status grossly normal Discharge Data Studies Completed and Pending Completed Studies During Hospitalization Category Date Time Status CT angio chest PE protcl [id number] Stat Cat Scan 05/21/24 10:21 Completed XR chest 1V portable [id number] Stat Exams 05/21/24 10:21 Completed XR chest 1V portable [id number] Stat Exams 05/25/24 08:02 Completed Radiology Impressions Chest CTA 05/21/24 10:21 IMPRESSION: 1. New subsolid consolidation consistent with pneumonia RIGHT upper lobe. Approximately 30% of the RIGHT upper lobe is involved with pneumonia. 2. Severe advanced emphysema. 3. LEFT hilar indeterminate lymph node. Probably reactive on the basis of the pneumonia. 4. No pulmonary embolism. Chest X-Ray 05/25/24 08:02 IMPRESSION: Progression of abnormality in the right upper lung seen on 05/21/2024. Laboratory Results WBC 12.35 10^3/uL (3.29-11.43) H 05/28/24 04:54 RBC 4.23 10^6/uL (3.85-5.65) 05/28/24 04:54 Hgb 12.40 g/dL (11.27-16.99) 05/28/24 04:54 Hct 37.9 % (37-53) 05/28/24 04:54 MCV 89.6 fl (82-101) 05/28/24 04:54 MCH 29.3 pg (27-33) 05/28/24 04:54 MCHC 32.7 g/dL (30-55) 05/28/24 04:54 RDW 13.1 % (12.1-15.1) 05/28/24 04:54 Plt Count 443 10^3/cmm (157-399) H 05/28/24 04:54 MPV 9.4 fL (7.4-10.4) 05/28/24 04:54 Neut % (Auto) 61.7 % 05/28/24 04:54 Lymph % (Auto) 18.8 % 05/28/24 04:54 [place] % (Auto) 7.9 % 05/28/24 04:54 Eos % (Auto) 1.0 % 05/28/24 04:54 Baso % (Auto) 0.6 % 05/28/24 04:54 Neut # (Auto) 7.62 10^3/uL (1.8-7.7) 05/28/24 04:54 Lymph # (Auto) 2.3 10^3/uL (0.8-4.8) 05/28/24 04:54 [place] # (Auto) 1.0 10^3/uL (0.2-0.9) H 05/28/24 04:54 Eos # (Auto) 0.1 10^3/uL (0.0-0.8) 05/28/24 04:54 Baso # (Auto) 0.1 10^3/uL (0.0-0.1) 05/28/24 04:54 Nucleated RBC % (auto) 0 % 05/28/24 04:54 Total Counted 100 (0-100) 05/27/24 04:18 Atypical Lymphs % Not Reportable 05/27/24 04:18 Segmented Neutrophils 69 % 05/27/24 04:18 Band Neutrophils Not Reportable 05/27/24 04:18 Lymphocytes (Manual) 14 % 05/27/24 04:18 Monocytes (Manual) 9.0 % 05/27/24 04:18 Absolute Monocytes 1.3 10^3/cmm (0.1-0.6) H 05/27/24 04:18 Eosinophils (Manual) 0 % 05/27/24 04:18 Absolute Eosinophils 0.0 10^3/cmm (0.0-0.7) 05/27/24 04:18 Basophils (Manual) 0.0 % 05/27/24 04:18 Absolute Basophils 0.0 10^3/cmm (0.0-0.2) 05/27/24 04:18 Myelocytes 7.0 % 05/27/24 04:18 Promyelocytes 1.0 % 05/27/24 04:18 Nucleated RBCs # 0.0 /100WBC 05/28/24 04:54 Platelet Estimate Normal (Normal) 05/27/24 04:18 Specimen Type Arterial 05/21/24 16:10 Sample Site Radial, right 05/21/24 16:10 ABG pH 7.43 (7.35-7.45) 05/21/24 16:10 ABG pCO2 41.4 mmHg (35-45) 05/21/24 16:10 ABG pO2 73.7 mmHg (80.0-100.0) L 05/21/24 16:10 ABG PO2/FiO2 Ratio 263 05/21/24 16:10 ABG HCO3 27.7 mmol/L (22-26) H 05/21/24 16:10 ABG Base Excess 3.1 mmol/L (-2.0-2.0) H 05/21/24 16:10 Brian Test Pos 05/21/24 16:10 Hematocrit 42.1 % (42-52) 05/21/24 16:10 O2 Delivery Device Nc 05/21/24 16:10 O2 Liters/Min 2.0 % 05/21/24 16:10 FiO2 28.0 % 05/21/24 16:10 Gear Lapper ID Yomi 05/21/24 16:10 Sodium 138 mmol/L (136-145) 05/27/24 04:18 Potassium 4.1 mmol/L (3.5-5.1) 05/27/24 04:18 Chloride 99 mmol/L (98-107) 05/27/24 04:18 Carbon Dioxide 34 mmol/L (22-29) H 05/27/24 04:18 Anion Gap 9.1 (5-19) 05/27/24 04:18 BUN 22 mg/dL (8-23) 05/27/24 04:18 Creatinine 0.7 mg/dL (0.7-1.2) 05/27/24 04:18 GFR Calculation 113.2 mL/min (90-130) 05/27/24 04:18 Glucose 115 mg/dL (65-115) 05/27/24 04:18 Estimat Average Glucose 117 05/21/24 10:23 Hemoglobin A1c 5.7 % (4.0-6.0) 05/21/24 10:23 Calculated Osmolality 290 mOsm/kg (285-295) 05/27/24 04:18 Lactic Acid 2.5 mmol/L (0.5-2.2) H 05/21/24 10:23 Lactic Acid (Sepsis) 2.0 mmol/L (0.5-2.2) 05/21/24 17:29 Calcium 8.4 mg/dL (8.5-10.5) L 05/27/24 04:18 Total Bilirubin 0.3 mg/dL (0.15-1.2) 05/24/24 04:44 AST 14 U/L (0-40) 05/24/24 04:44 ALT 24 U/L (0-41) 05/24/24 04:44 Alkaline Phosphatase 85 U/L (40-130) 05/24/24 04:44 Troponin T Baseline 10 ng/L (0-15) 05/21/24 10:23 Troponin T 120 Minute 10.32 ng/L (0-15) 05/21/24 12:49 Delta Troponin T 0.32 ABS# (0-10) 05/21/24 12:49 Troponin T Hi Sens 6Hr 9.61 ng/L (0-15) 05/21/24 17:29 Troponin T Hi Sens 6Hr Delta -0.39 ng/L (0-12) L 05/21/24 17:29 C-Reactive Protein 19.6 mg/L (0.0-4.9) H 05/25/24 03:25 NT-Pro-B Natriuret Pep 182 pg/mL (0-125) H 05/24/24 04:44 Total Protein 6.7 g/dL (6.6-8.7) 05/24/24 04:44 Albumin 4.0 g/dL (3.5-5.2) 05/24/24 04:44 Globulin 2.7 g/dL (1.3-4.6) 05/24/24 04:44 Triglycerides 120 mg/dL (0-150) 05/21/24 10:23 Cholesterol 178 mg/dL (0-200) 05/21/24 10:23 LDL Cholesterol, Calc 69 mg/dL (50-129) 05/21/24 10:23 HDL Cholesterol 85 mg/dL (60-100) 05/21/24 10:23 LDL/HDL Ratio 0.81 RATIO (0.00-3.22) 05/21/24 10:23 Cholesterol/HDL Ratio 2.09 mg/dL (1.0-5.00) 05/21/24 10:23 Procalcitonin 0.13 ng/mL (0-0.5) 05/25/24 03:25 TSH 2.79 uIU/mL (0.27-4.20) 05/21/24 10:23 Coronavirus (PCR) Negative (Negative) 05/21/24 14:53 Influenza A (PCR) Negative (Negative) 05/21/24 14:53 Influenza Type B (PCR) Negative (Negative) 05/21/24 14:53 RSV (PCR) Negative (Negative) 05/21/24 14:53 Vitals Last Vital Signs Temp 97.9 F 05/28/24 07:57 Pulse 77 05/28/24 07:57 Resp 16 05/28/24 07:57 BP 126/77 05/28/24 07:57 Pulse Ox 92 05/28/24 07:57 O2 Del Method Room Air 05/28/24 07:57 O2 Flow Rate 1 05/27/24 08:00 Discharge Plan Discharge Patient Disposition: Home Condition: Stable Prescriptions: New prednisone 20 mg Tablet 40 mg PO DAILY 5 Days Qty: 10 0RF levofloxacin 750 mg Tablet 750 mg PO DAILY@0600 4 Days Qty: 4 0RF alprazolam 0.5 mg Tablet 0.5 mg PO Q24H PRN (Reason: Anxiety) 5 Days Qty: 5 0RF Continued ipratropium-albuterol 0.5 mg-3 mg(2.5 mg base)/3 mL solution for nebulization 3 ml inhalation Q4H PRN (Reason: wheezing) Qty: 90 3RF trazodone 50 mg tablet 50 mg PO DAILY Qty: 30 1RF levalbuterol tartrate [Xopenex HFA] 45 mcg/actuation HFA aerosol inhaler 2 inh inhalation Q6H PRN (Reason: SOB or Wheezing) Qty: 15 6RF Breztri Aerosphere 160-9-4.8 mcg/actuation HFA aerosol inhaler See Rx Instructions .ROUTE .COMPLEX Qty: 10.7 3RF Dose Instruction: INHALE TWO PUFFS BY MOUTH TWICE DAILY Rx Instructions: INHALE TWO PUFFS BY MOUTH TWICE DAILY Discontinued prednisone 50 mg tablet 50 mg PO DAILY Qty: 5 0RF doxycycline hyclate 100 mg tablet 100 mg PO BID 7 Days Qty: 14 0RF Discharge Orders: Discharge Order (Routine); Ordered 05/28/24 Ordered By: Audie Luke Referrals: Santiago Cochran MD [Primary Care Provider] - 06/25/24 11:00 am () Discharge Diet: Cardiac Discharge Activity: Resume usual activity Patient Instructions: Alprazolam (By mouth), Prednisone (By mouth), Levofloxacin (By mouth), COPD (Chronic Obstructive Pulmonary Disease) (DC), COPD Stoplight, Opioid Safety Activity Restrictions/Additional Instructions: -? Please take antibiotics as prescribed ? Hydrate well ? Take steroids as prescribed ? Follow-up with primary care provider ? Please use Xanax sparingly for anxiety, do not drive or operate heavy machinery or drink alcohol while taking medication Discharge Attestations Time Spent in Discharge Care*: greater than 30 min Quality Metrics Clinical Quality Measures [ No reported AMI, CVA or VTE this stay] Coding Level of Care Code 17876 Total time (in minutes) for Discharge: 45 Diagnoses Right upper lobe pneumonia J18.9 COPD exacerbation J44.1 Protein calorie malnutrition E46 Low BMI Muscle wasting M62.50 Sepsis A41.9 Pseudomonas pneumonia J15.1
[2024-05-28] MEDS: budesonide 0.5 mg/2 mL Neb INHALATION (08:11)
== END 2024-05-28 13:40 | disposition home or self-care (01) | DRG 871 ==
LOC: ER 12:10 → MEDSURG 12:50
PROVIDERS: Admitting Provider Family Medicine; Emergency Provider Emergency Medicine; PCP Family Medicine; Visit Provider Family Medicine
DX: A41.9 Sepsis, unspecified organism (principal); J15.1 Pneumonia due to Pseudomonas; J96.01 Acute respiratory failure with hypoxia; J44.0 Chronic obstructive pulmonary disease with (acute) lower respiratory infection; E44.0 Moderate protein-calorie malnutrition; Z68.1 Body mass index [BMI] 19.9 or less, adult; J44.1 Chronic obstructive pulmonary disease with (acute) exacerbation; F41.9 Anxiety disorder, unspecified; R65.20 Severe sepsis without septic shock; Z79.51 Long term (current) use of inhaled steroids; Z87.891 Personal history of nicotine dependence; J43.9 Emphysema, unspecified; Z11.52 Encounter for screening for COVID-19
CPT/HCPCS: 0241U; 36415; 36600; 71045; 71275; 80048; 80053; 80061; 82803; 83036; 83605; 83880; 84145; 84443; 84484; 85007; 85025; 86140; 87040; 87070; 87077; 87186; 87205; 92526; 92610; 93005; 94640; 94664; 96365; 96372; 96375; 99285; J0456; J0692; J0696; J1650; J2919; J7050; J7512; J7626

== ENCOUNTER 2024-06-05 09:17 | Outpatient (CLI) | payer MEDICARE, MEDICAID, SELFPAY ==
--- NOTE | 2024-06-05 09:24 | XR_ITS ---
WS: [id number] Chest 2 views, 06/05/2024 Clinical Data: pneumonia Comparison: Portable chest, 05/25/2024 Findings: The patchy opacity of the right upper lobe has partly cleared. No nodules, masses or effusi ons are seen. The heart is normal. The pulmonary vascularity is not increased. No pneumothorax is se en. The diaphragms are flattened. The aortic arch shows calcification. XR/XR chest 2V* [id number] Impression: 1. Partial clearing of probable right upper lobe pneumonia. 2. Atherosclerosis and hyperinflation.
== END 2024-06-05 09:18 | disposition home or self-care (01) ==
LOC: RAD 09:18
PROVIDERS: PCP Family Medicine; Visit Provider Family Medicine
DX: J15.1 Pneumonia due to Pseudomonas (principal); I70.0 Atherosclerosis of aorta; R06.02 Shortness of breath
CPT/HCPCS: 71046

== ENCOUNTER → 2025-05-04 12:14 | Outpatient (BNVA) | payer MEDICARE, MEDICAID, SELFPAY | PROVIDERS: PCP Family Medicine; Visit Provider Family Medicine | DX: Z13.6 Encounter for screening for cardiovascular disorders (principal) | CPT/HCPCS: 80053; 80061; 85025 ==